=== PATIENT | female | born 1930 | race Caucasian/White ===

== ENCOUNTER 2017-03-17 18:37 | Inpatient (IN) | payer MEDICARE, BC, OTHER ==
[2017-03-17] MEDS: NS 500 ML IV (19:45)
[2017-03-17 20:47] LABS: VENOUS BASE EXCESS 0.9 (-2.0-2.0); VENOUS HCO3 25.1 MEQ/L (23.0-27.0); VENOUS O2 SATURATION 43.5 % (60.0-80.0); VENOUS PARTIAL PRESSURE CO2 38.4 mmHg (38.0-50.0); VENOUS PH 7.433 UNITS (7.330-7.430); VENOUS STANDARD HCO3 24.2 MEQ/L; VENOUS TOTAL CO2 26.3 MEQ/L (24.0-28.0)
[2017-03-17 21:14] LABS: ALBUMIN 3.7 GM/DL (3.2-5.2); ALBUMIN/GLOBULIN RATIO 1.12 (1.00-1.93); ALKALINE PHOSPHATASE 73 U/L (45-117); ALT/SGPT 12 U/L (12-78); ANION GAP 8 MEQ/L (8-16); AST/SGOT 10 U/L (7-37); BILIRUBIN,DIRECT 0.2 MG/DL (0.0-0.2); BILIRUBIN,TOTAL 0.6 MG/DL (0.2-1.0); BLOOD UREA NITROGEN 23 MG/DL (7-18); CALCIUM LEVEL 9.1 MG/DL (8.8-10.2); CARBON DIOXIDE LEVEL 26 MEQ/L (21-32); CHLORIDE LEVEL 108 MEQ/L (98-107); CPK CREATINE PHOSPHOKINASE 75 U/L (26-192); CREATININE FOR GFR 1.08 MG/DL (0.55-1.02); GLOMERULAR FILTRATION RATE 51.3 (>32); GLUCOSE, FASTING 80 MG/DL (70-100); SODIUM LEVEL 142 MEQ/L (136-145); TROPONIN I < 0.02 NG/ML (< 0.10)
[2017-03-17 21:20] LABS: CK-MB VALUE MASS 1.1 NG/ML (0.0-3.6); MB/CK RELATIVE INDEX 1.46 (< OR =4)
[2017-03-17 21:27] LABS: BASO # 0.1 10^3/uL (0.0-0.2); BASO % 0.8 % (0.0-1.0); EOS # 0.2 10^3/uL (0.0-0.50); HEMATOCRIT 30.4 % (36.0-47.0); HEMOGLOBIN 11.3 g/dl (12.0-16.0); IMMATURE GRANULOCYTE % 0.4 % (0-0); LYMPH # 1.9 10^3/uL (1.5-4.5); LYMPH % 24.7 % (24.0-44.0); MEAN CORPUSCULAR HEMOGLOBIN 36.6 pg (27.0-33.0); MEAN CORPUSCULAR VOLUME 98.4 fl (80.0-96.0); MONO # 0.7 10^3/uL (0.0-0.8); MONO % 9.6 % (0.0-5.0); NEUTROPHILS # 4.7 10^3/uL (1.8-7.7); NEUTROPHILS % 61.5 % (36.0-66.0); PLATELET COUNT, AUTOMATED 232 10^3/uL (150-450); RED BLOOD COUNT 3.09 10^6/uL (4.00-5.40); RED CELL DISTRIBUTION WIDTH 18.4 % (11.5-14.5); WHITE BLOOD COUNT 7.6 10^3/uL (4.0-10.0)
[2017-03-17 21:32] LABS: MEAN CORPUSCULAR HGB CONC 37.2 g/dl (32.0-36.5)
[2017-03-17 21:42] LABS: LACTIC ACID SEPSIS PROTOCOL 0.9 MMOL/L (0.4-2.0)
[2017-03-17 22:27] LABS: KETONE, URINE AUTO RFX 1+ mg/dL (NEGATIVE); LEUKOCYTE ESTERASE UR AUTO RFX NEGATIVE (NEGATIVE); MUCUS, URINE RFX MODERATE (NEGATIVE); NITRITE, URINE AUTO RFX NEGATIVE (NEGATIVE); RBC, URINE AUTO RFX 7 /HPF (0-3); SPECIFIC GRAVITY UR AUTO RFX 1.024 (1.002-1.035); SQUAM EPITHELIAL CELL UR AURFX 0 /HPF (0-6); WBC, URINE AUTO RFX 1 /HPF (0-3)
[2017-03-17] MEDS ORDERED: ONDANSETRON 4MG/2ML VIAL (J2405) IV (23:45)
[2017-03-18] MEDS: NS 1,000 ML IV ×3 (00:50→17:00)
[2017-03-18] MEDS: **hydrALAZINE** 10 MG TAB PO ×5 (01:02→23:31)
[2017-03-18] MEDS: amLODIPine 5 MG TAB PO ×3 (01:03→20:24)
[2017-03-18 01:30] LABS: AMMONIA < 10 uMOL/L (<32)
[2017-03-18] MEDS ORDERED: HALOBETASOL PROPION 0.05% OINT 15 GM EXT (02:00)
[2017-03-18] MEDS ORDERED: ALBUTEROL 90 MCG/ACT 8GM HFA INHALER INH (02:00)
[2017-03-18 07:43] LABS: BASO % 0.6 % (0.0-1.0); EOS # 0.3 10^3/uL (0.0-0.50); EOS % 4.3 % (0.0-3.0); HEMOGLOBIN 10.1 g/dl (12.0-16.0); IMMATURE GRANULOCYTE % 0.5 % (0-0); LYMPH # 1.3 10^3/uL (1.5-4.5); LYMPH % 20.4 % (24.0-44.0); MEAN CORPUSCULAR HEMOGLOBIN 33.3 pg (27.0-33.0); MEAN CORPUSCULAR VOLUME 95.7 fl (80.0-96.0); MONO # 0.6 10^3/uL (0.0-0.8); MONO % 9.2 % (0.0-5.0); NEUTROPHILS # 4.2 10^3/uL (1.8-7.7); PLATELET COUNT, AUTOMATED 207 10^3/uL (150-450); RED BLOOD COUNT 3.03 10^6/uL (4.00-5.40); RED CELL DISTRIBUTION WIDTH 16.5 % (11.5-14.5); WHITE BLOOD COUNT 6.5 10^3/uL (4.0-10.0)
[2017-03-18 07:45] LABS: MEAN CORPUSCULAR HGB CONC 34.8 g/dl (32.0-36.5)
[2017-03-18 07:46] LABS: ANION GAP 8 MEQ/L (8-16); BLOOD UREA NITROGEN 19 MG/DL (7-18); CALCIUM LEVEL 8.1 MG/DL (8.8-10.2); CARBON DIOXIDE LEVEL 24 MEQ/L (21-32); CHLORIDE LEVEL 111 MEQ/L (98-107); CREATININE FOR GFR 0.79 MG/DL (0.55-1.02); GLOMERULAR FILTRATION RATE > 60.0 (>32); GLUCOSE, FASTING 76 MG/DL (70-100); POTASSIUM SERUM 3.6 MEQ/L (3.5-5.1); SODIUM LEVEL 143 MEQ/L (136-145)
[2017-03-18] MEDS: VITAMIN D 1,000 INTERNATIONAL UNITS TABLET PO (10:24)
[2017-03-18] MEDS: SERTRALINE HCL 25 MG TABLET PO (10:24)
[2017-03-18] MEDS: ENOXAPARIN 40 MG/0.4 ML SYRINGE (J1650) SC (10:25)
[2017-03-18] MEDS: OMEPRAZOLE 20 MG CAP PO (10:25)
[2017-03-18] MEDS: CLOPIDOGREL 75 MG TAB PO (10:26)
[2017-03-18] MEDS: ASCORBIC ACID 500 MG TAB PO (10:26)
[2017-03-18] MEDS: oxyBUTYnin *DITROPAN XL* 5 MG TABCR PO (10:27)
[2017-03-18] MEDS: PRAVASTATIN 20 MG TAB PO ×2 (20:26→20:27)
[2017-03-19] MEDS: **hydrALAZINE** 10 MG TAB PO ×4 (05:58→23:43)
[2017-03-19 06:43] LABS: BASO % 0.5 % (0.0-1.0); EOS # 0.3 10^3/uL (0.0-0.50); EOS % 4.6 % (0.0-3.0); HEMATOCRIT 29.2 % (36.0-47.0); HEMOGLOBIN 9.7 g/dl (12.0-16.0); IMMATURE GRANULOCYTE % 0.3 % (0-0); LYMPH # 1.4 10^3/uL (1.5-4.5); LYMPH % 22.3 % (24.0-44.0); MEAN CORPUSCULAR HEMOGLOBIN 31.9 pg (27.0-33.0); MEAN CORPUSCULAR HGB CONC 33.2 g/dl (32.0-36.5); MEAN CORPUSCULAR VOLUME 96.1 fl (80.0-96.0); MONO # 0.7 10^3/uL (0.0-0.8); MONO % 10.8 % (0.0-5.0); NEUTROPHILS # 3.8 10^3/uL (1.8-7.7); NEUTROPHILS % 61.5 % (36.0-66.0); PLATELET COUNT, AUTOMATED 207 10^3/uL (150-450); RED BLOOD COUNT 3.04 10^6/uL (4.00-5.40); RED CELL DISTRIBUTION WIDTH 16.1 % (11.5-14.5); WHITE BLOOD COUNT 6.1 10^3/uL (4.0-10.0)
[2017-03-19 06:49] LABS: ANION GAP 5 MEQ/L (8-16); BLOOD UREA NITROGEN 15 MG/DL (7-18); CALCIUM LEVEL 8.2 MG/DL (8.8-10.2); CARBON DIOXIDE LEVEL 26 MEQ/L (21-32); CHLORIDE LEVEL 114 MEQ/L (98-107); CREATININE FOR GFR 0.82 MG/DL (0.55-1.02); GLOMERULAR FILTRATION RATE > 60.0 (>32); GLUCOSE, FASTING 101 MG/DL (70-100); SODIUM LEVEL 145 MEQ/L (136-145)
[2017-03-19] MEDS: SERTRALINE HCL 25 MG TABLET PO (09:33)
[2017-03-19] MEDS: ASCORBIC ACID 500 MG TAB PO (09:33)
[2017-03-19] MEDS: amLODIPine 5 MG TAB PO ×2 (09:33→20:51)
[2017-03-19] MEDS: oxyBUTYnin *DITROPAN XL* 5 MG TABCR PO (09:33)
[2017-03-19] MEDS: OMEPRAZOLE 20 MG CAP PO (09:33)
[2017-03-19] MEDS: CLOPIDOGREL 75 MG TAB PO (09:33)
[2017-03-19] MEDS: VITAMIN D 1,000 INTERNATIONAL UNITS TABLET PO (09:33)
[2017-03-19] MEDS: ENOXAPARIN 40 MG/0.4 ML SYRINGE (J1650) SC (09:34)
[2017-03-19] MEDS: PRAVASTATIN 20 MG TAB PO (20:51)
[2017-03-19] MEDS: ACETAMINOPHEN TAB 650MG DOSE (2X325MG) PO (23:44)
[2017-03-20] MEDS: **hydrALAZINE** 10 MG TAB PO ×4 (06:16→23:50)
[2017-03-20 06:50] LABS: ANION GAP 7 MEQ/L (8-16); BLOOD UREA NITROGEN 17 MG/DL (7-18); CALCIUM LEVEL 9.1 MG/DL (8.8-10.2); CARBON DIOXIDE LEVEL 28 MEQ/L (21-32); CHLORIDE LEVEL 109 MEQ/L (98-107); CREATININE FOR GFR 0.81 MG/DL (0.55-1.02); GLOMERULAR FILTRATION RATE > 60.0 (>32); GLUCOSE, FASTING 95 MG/DL (70-100); POTASSIUM SERUM 3.9 MEQ/L (3.5-5.1); SODIUM LEVEL 144 MEQ/L (136-145)
[2017-03-20 06:53] LABS: BASO # 0.1 10^3/uL (0.0-0.2); BASO % 0.9 % (0.0-1.0); EOS # 0.4 10^3/uL (0.0-0.50); EOS % 6.6 % (0.0-3.0); HEMATOCRIT 31.1 % (36.0-47.0); HEMOGLOBIN 10.8 g/dl (12.0-16.0); IMMATURE GRANULOCYTE % 0.3 % (0-0); LYMPH # 1.5 10^3/uL (1.5-4.5); LYMPH % 26.7 % (24.0-44.0); MEAN CORPUSCULAR HEMOGLOBIN 33.3 pg (27.0-33.0); MONO # 0.6 10^3/uL (0.0-0.8); MONO % 9.8 % (0.0-5.0); NEUTROPHILS # 3.2 10^3/uL (1.8-7.7); NEUTROPHILS % 55.7 % (36.0-66.0); PLATELET COUNT, AUTOMATED 237 10^3/uL (150-450); RED BLOOD COUNT 3.24 10^6/uL (4.00-5.40); RED CELL DISTRIBUTION WIDTH 17.1 % (11.5-14.5); WHITE BLOOD COUNT 5.7 10^3/uL (4.0-10.0)
[2017-03-20 07:04] LABS: MEAN CORPUSCULAR HGB CONC 34.7 g/dl (32.0-36.5)
[2017-03-20] MEDS: VITAMIN D 1,000 INTERNATIONAL UNITS TABLET PO (08:50)
[2017-03-20] MEDS: OMEPRAZOLE 20 MG CAP PO (08:51)
[2017-03-20] MEDS: amLODIPine 5 MG TAB PO ×2 (08:53→20:32)
[2017-03-20] MEDS: CLOPIDOGREL 75 MG TAB PO (08:56)
[2017-03-20] MEDS: ASCORBIC ACID 500 MG TAB PO (08:56)
[2017-03-20] MEDS: oxyBUTYnin *DITROPAN XL* 5 MG TABCR PO (08:56)
[2017-03-20] MEDS: SERTRALINE HCL 25 MG TABLET PO (08:56)
[2017-03-20] MEDS: ENOXAPARIN 40 MG/0.4 ML SYRINGE (J1650) SC (08:57)
[2017-03-20] MEDS: ACETAMINOPHEN TAB 650MG DOSE (2X325MG) PO ×2 (08:59→17:55)
[2017-03-20] MEDS: PRAVASTATIN 20 MG TAB PO (20:33)
[2017-03-21] MEDS: **hydrALAZINE** 10 MG TAB PO ×3 (05:56→18:00)
[2017-03-21] MEDS: VITAMIN D 1,000 INTERNATIONAL UNITS TABLET PO (08:22)
[2017-03-21] MEDS: oxyBUTYnin *DITROPAN XL* 5 MG TABCR PO (08:22)
[2017-03-21] MEDS: CLOPIDOGREL 75 MG TAB PO (08:22)
[2017-03-21] MEDS: amLODIPine 5 MG TAB PO ×2 (08:22→21:06)
[2017-03-21] MEDS: ASCORBIC ACID 500 MG TAB PO (08:23)
[2017-03-21] MEDS: ENOXAPARIN 40 MG/0.4 ML SYRINGE (J1650) SC (08:23)
[2017-03-21] MEDS: OMEPRAZOLE 20 MG CAP PO (08:23)
[2017-03-21] MEDS: SERTRALINE HCL 25 MG TABLET PO (08:23)
[2017-03-21 08:30] LABS: ANION GAP 10 MEQ/L (8-16); BLOOD UREA NITROGEN 14 MG/DL (7-18); CALCIUM LEVEL 8.7 MG/DL (8.8-10.2); CARBON DIOXIDE LEVEL 28 MEQ/L (21-32); CHLORIDE LEVEL 107 MEQ/L (98-107); CREATININE FOR GFR 0.84 MG/DL (0.55-1.30); GLOMERULAR FILTRATION RATE > 60.0 (>32); GLUCOSE, FASTING 101 MG/DL (70-100); POTASSIUM SERUM 3.7 MEQ/L (3.5-5.1); SODIUM LEVEL 145 MEQ/L (136-145)
[2017-03-21 09:03] LABS: BASO # 0.1 10^3/uL (0.0-0.2); BASO % 0.9 % (0.0-1.0); EOS # 0.3 10^3/uL (0.0-0.50); EOS % 5.6 % (0.0-3.0); HEMATOCRIT 35.7 % (36.0-47.0); IMMATURE GRANULOCYTE % 0.4 % (0-0); LYMPH # 1.3 10^3/uL (1.5-4.5); LYMPH % 22.4 % (24.0-44.0); MEAN CORPUSCULAR HEMOGLOBIN 35.1 pg (27.0-33.0); MONO # 0.5 10^3/uL (0.0-0.8); MONO % 8.4 % (0.0-5.0); NEUTROPHILS # 3.5 10^3/uL (1.8-7.7); NEUTROPHILS % 62.3 % (36.0-66.0); PLATELET COUNT, AUTOMATED 250 10^3/uL (150-450); RED BLOOD COUNT 3.68 10^6/uL (4.00-5.40); WHITE BLOOD COUNT 5.6 10^3/uL (4.0-10.0)
[2017-03-21 09:05] LABS: HEMOGLOBIN 12.9 g/dl (12.0-16.0)
[2017-03-21 09:06] LABS: MEAN CORPUSCULAR HGB CONC 36.1 g/dl (32.0-36.5)
[2017-03-21] MEDS: PRAVASTATIN 20 MG TAB PO (21:05)
[2017-03-22] MEDS: **hydrALAZINE** 10 MG TAB PO ×4 (06:00→18:00)
[2017-03-22 07:01] LABS: ANION GAP 5 MEQ/L (8-16); BLOOD UREA NITROGEN 18 MG/DL (7-18); CALCIUM LEVEL 8.4 MG/DL (8.8-10.2); CARBON DIOXIDE LEVEL 30 MEQ/L (21-32); CHLORIDE LEVEL 110 MEQ/L (98-107); CREATININE FOR GFR 0.76 MG/DL (0.55-1.30); GLOMERULAR FILTRATION RATE > 60.0 (>32); GLUCOSE, FASTING 99 MG/DL (70-100); POTASSIUM SERUM 3.8 MEQ/L (3.5-5.1); SODIUM LEVEL 145 MEQ/L (136-145)
[2017-03-22 07:36] LABS: BASO % 0.6 % (0.0-1.0); EOS # 0.3 10^3/uL (0.0-0.50); EOS % 5.3 % (0.0-3.0); HEMATOCRIT 30.6 % (36.0-47.0); IMMATURE GRANULOCYTE % 0.2 % (0-0); LYMPH # 1.4 10^3/uL (1.5-4.5); LYMPH % 20.9 % (24.0-44.0); MEAN CORPUSCULAR HEMOGLOBIN 33.4 pg (27.0-33.0); MEAN CORPUSCULAR HGB CONC 34.6 g/dl (32.0-36.5); MEAN CORPUSCULAR VOLUME 96.5 fl (80.0-96.0); MONO # 0.6 10^3/uL (0.0-0.8); MONO % 9.9 % (0.0-5.0); NEUTROPHILS # 4.1 10^3/uL (1.8-7.7); NEUTROPHILS % 63.1 % (36.0-66.0); PLATELET COUNT, AUTOMATED 226 10^3/uL (150-450); RED BLOOD COUNT 3.17 10^6/uL (4.00-5.40); RED CELL DISTRIBUTION WIDTH 16.7 % (11.5-14.5); WHITE BLOOD COUNT 6.5 10^3/uL (4.0-10.0)
[2017-03-22 07:39] LABS: HEMOGLOBIN 10.6 g/dl (12.0-16.0)
[2017-03-22] MEDS: VITAMIN D 1,000 INTERNATIONAL UNITS TABLET PO (08:31)
[2017-03-22] MEDS: oxyBUTYnin *DITROPAN XL* 5 MG TABCR PO (08:31)
[2017-03-22] MEDS: ENOXAPARIN 40 MG/0.4 ML SYRINGE (J1650) SC (08:31)
[2017-03-22] MEDS: ASCORBIC ACID 500 MG TAB PO (08:32)
[2017-03-22] MEDS: amLODIPine 5 MG TAB PO ×2 (08:32→21:34)
[2017-03-22] MEDS: SERTRALINE HCL 25 MG TABLET PO (08:32)
[2017-03-22] MEDS: OMEPRAZOLE 20 MG CAP PO (08:32)
[2017-03-22] MEDS: CLOPIDOGREL 75 MG TAB PO (08:32)
[2017-03-22] MEDS: PRAVASTATIN 20 MG TAB PO (21:34)
[2017-03-23] MEDS: **hydrALAZINE** 10 MG TAB PO ×3 (06:00→12:20)
[2017-03-23 07:08] LABS: HEMOGLOBIN 10.9 g/dl (12.0-16.0); PLATELET COUNT, AUTOMATED 228 10^3/uL (150-450); RED BLOOD COUNT 3.06 10^6/uL (4.00-5.40); RED CELL DISTRIBUTION WIDTH 18.5 % (11.5-14.5); WHITE BLOOD COUNT 7.7 10^3/uL (4.0-10.0)
[2017-03-23 07:09] LABS: MEAN CORPUSCULAR HEMOGLOBIN 35.6 pg (27.0-33.0); MEAN CORPUSCULAR HGB CONC 36.3 g/dl (32.0-36.5)
[2017-03-23 07:19] LABS: ANION GAP 8 MEQ/L (8-16); BLOOD UREA NITROGEN 15 MG/DL (7-18); CALCIUM LEVEL 8.6 MG/DL (8.8-10.2); CARBON DIOXIDE LEVEL 26 MEQ/L (21-32); CHLORIDE LEVEL 108 MEQ/L (98-107); CREATININE FOR GFR 0.74 MG/DL (0.55-1.30); GLOMERULAR FILTRATION RATE > 60.0 (>32); GLUCOSE, FASTING 100 MG/DL (70-100); MAGNESIUM LEVEL 2.1 MG/DL (1.8-2.4); POTASSIUM SERUM 3.5 MEQ/L (3.5-5.1); SODIUM LEVEL 142 MEQ/L (136-145)
[2017-03-23] MEDS: ASCORBIC ACID 500 MG TAB PO (08:59)
[2017-03-23] MEDS: VITAMIN D 1,000 INTERNATIONAL UNITS TABLET PO (08:59)
[2017-03-23] MEDS: SERTRALINE HCL 25 MG TABLET PO (08:59)
[2017-03-23] MEDS: CLOPIDOGREL 75 MG TAB PO (08:59)
[2017-03-23] MEDS: amLODIPine 5 MG TAB PO (08:59)
[2017-03-23] MEDS: OMEPRAZOLE 20 MG CAP PO (08:59)
[2017-03-23] MEDS: oxyBUTYnin *DITROPAN XL* 5 MG TABCR PO (08:59)
[2017-03-23] MEDS: ENOXAPARIN 40 MG/0.4 ML SYRINGE (J1650) SC (10:43)
== END 2017-03-23 14:30 | DRG 884 ==
LOC: M MS4PR 03-18 01:40 → M ED 18:37 → M ED INP 23:33
DX: F03.90 Unspecified dementia, unspecified severity, without behavioral disturbance, psychotic disturbance, mood disturbance, and anxiety (principal); R41.82 Altered mental status, unspecified; R29.6 Repeated falls; I16.0 Hypertensive urgency; N32.81 Overactive bladder; J45.909 Unspecified asthma, uncomplicated; E78.5 Hyperlipidemia, unspecified; K21.9 Gastro-esophageal reflux disease without esophagitis; Z79.02 Long term (current) use of antithrombotics/antiplatelets; Z88.0 Allergy status to penicillin; Z79.899 Other long term (current) drug therapy

== ENCOUNTER → 2017-04-05 | Outpatient (REF) ==
[2017-04-05 11:50] LABS: HEMATOCRIT 34.8 % (36.0-47.0); HEMOGLOBIN 11.7 g/dl (12.0-16.0); MEAN CORPUSCULAR HEMOGLOBIN 32.2 pg (27.0-33.0); MEAN CORPUSCULAR HGB CONC 33.6 g/dl (32.0-36.5); MEAN CORPUSCULAR VOLUME 95.9 fl (80.0-96.0); PLATELET COUNT, AUTOMATED 370 10^3/uL (150-450); RED BLOOD COUNT 3.63 10^6/uL (4.00-5.40); WHITE BLOOD COUNT 9.5 10^3/uL (4.0-10.0)
[2017-04-05 11:56] LABS: ANION GAP 8 MEQ/L (8-16); BLOOD UREA NITROGEN 17 MG/DL (7-18); CALCIUM LEVEL 9.2 MG/DL (8.8-10.2); CARBON DIOXIDE LEVEL 29 MEQ/L (21-32); CHLORIDE LEVEL 105 MEQ/L (98-107); CREATININE FOR GFR 0.86 MG/DL (0.55-1.30); GLOMERULAR FILTRATION RATE > 60.0 (>32); GLUCOSE, FASTING 99 MG/DL (70-100); POTASSIUM SERUM 4.3 MEQ/L (3.5-5.1); SODIUM LEVEL 142 MEQ/L (136-145)
== END ==
DX: I10 Essential (primary) hypertension (principal)

== ENCOUNTER 2017-06-16 11:15 | Emergency (ER) | payer MEDICARE, BC ==
[2017-06-16 11:47] LABS: AMORPHOUS SEDIMENT RFX SMALL (NEGATIVE); KETONE, URINE AUTO RFX 1+ mg/dL (NEGATIVE); MUCUS, URINE RFX SMALL (NEGATIVE); RBC, URINE AUTO RFX TNTC /HPF (0-3); RENAL EPITHELIAL CELLS RFX 1 /HPF; SPECIFIC GRAVITY UR AUTO RFX 1.018 (1.002-1.035); SQUAM EPITHELIAL CELL UR AURFX 1 /HPF (0-6); TRANSITIONAL EPITHELIAL AU RFX 2 /HPF
[2017-06-16 12:14] LABS: LEUKOCYTE ESTERASE UR AUTO RFX 3+ (NEGATIVE); NITRITE, URINE AUTO RFX POSITIVE (NEGATIVE); WBC, URINE AUTO RFX TNTC /HPF (0-3)
[2017-06-16] MEDS: NS 1,000 ML IV (12:15)
[2017-06-16] MEDS: CIPROFLOXACIN 400 MG in APPROPRIATE DILUENT 1 EA IV (12:30)
[2017-06-16 13:08] LABS: ALBUMIN 3.3 GM/DL (3.2-5.2); ALBUMIN/GLOBULIN RATIO 0.89 (1.00-1.93); ALKALINE PHOSPHATASE 85 U/L (45-117); ALT/SGPT 13 U/L (12-78); ANION GAP 7 MEQ/L (8-16); AST/SGOT 11 U/L (7-37); BILIRUBIN,DIRECT 0.2 MG/DL (0.0-0.2); BILIRUBIN,TOTAL 0.6 MG/DL (0.2-1.0); BLOOD UREA NITROGEN 14 MG/DL (7-18); CALCIUM LEVEL 8.7 MG/DL (8.8-10.2); CARBON DIOXIDE LEVEL 28 MEQ/L (21-32); CHLORIDE LEVEL 106 MEQ/L (98-107); CPK CREATINE PHOSPHOKINASE 64 U/L (26-192); CREATININE FOR GFR 1.03 MG/DL (0.55-1.30); GLOMERULAR FILTRATION RATE 54.2 (>32); GLUCOSE, FASTING 85 MG/DL (70-100); POTASSIUM SERUM 3.8 MEQ/L (3.5-5.1); SODIUM LEVEL 141 MEQ/L (136-145); TROPONIN I < 0.02 NG/ML (< 0.10)
[2017-06-16 13:08] LABS: LACTIC ACID SEPSIS PROTOCOL 0.8 MMOL/L (0.4-2.0)
[2017-06-16 13:12] LABS: BASO % 0.3 % (0.0-1.0); EOS # 0.1 10^3/uL (0.0-0.50); EOS % 0.7 % (0.0-3.0); HEMATOCRIT 32.3 % (36.0-47.0); IMMATURE GRANULOCYTE % 0.4 % (0-3.0); LYMPH # 1.3 10^3/uL (1.5-4.5); LYMPH % 10.9 % (24.0-44.0); MEAN CORPUSCULAR HEMOGLOBIN 31.6 pg (27.0-33.0); MEAN CORPUSCULAR HGB CONC 34.1 g/dl (32.0-36.5); MEAN CORPUSCULAR VOLUME 92.8 fl (80.0-96.0); MONO % 8.2 % (0.0-5.0); NEUTROPHILS # 9.7 10^3/uL (1.8-7.7); NEUTROPHILS % 79.5 % (36.0-66.0); PLATELET COUNT, AUTOMATED 231 10^3/uL (150-450); RED BLOOD COUNT 3.48 10^6/uL (4.00-5.40); RED CELL DISTRIBUTION WIDTH 17.3 % (11.5-14.5)
[2017-06-16 13:14] LABS: CK-MB VALUE MASS 1.4 NG/ML (<3.6); MB/CK RELATIVE INDEX 2.18 (< OR =4)
[2017-06-16 14:12] LABS: WHITE BLOOD COUNT 12.2 10^3/uL (4.0-10.0)
[2017-06-16] MEDS: ONDANSETRON 4MG/2ML VIAL (J2405) IV (14:57)
== END 2017-06-16 15:42 | disposition home or self-care (01) ==
LOC: M ED 11:15
DX: N39.0 Urinary tract infection, site not specified (principal); R53.1 Weakness; I10 Essential (primary) hypertension; F33.9 Major depressive disorder, recurrent, unspecified; E78.9 Disorder of lipoprotein metabolism, unspecified; K21.9 Gastro-esophageal reflux disease without esophagitis; F03.90 Unspecified dementia, unspecified severity, without behavioral disturbance, psychotic disturbance, mood disturbance, and anxiety; K44.9 Diaphragmatic hernia without obstruction or gangrene; Z79.899 Other long term (current) drug therapy; Z79.51 Long term (current) use of inhaled steroids; Z88.0 Allergy status to penicillin
CPT/HCPCS: J2405

== ENCOUNTER 2017-07-12 15:33 | Emergency (ER) | payer MEDICARE | END 2017-07-12 19:31 | disposition home or self-care (01) | LOC: M ED 15:33 | DX: S00.93XA Contusion of unspecified part of head, initial encounter (principal); S06.0X1A Concussion with loss of consciousness of 30 minutes or less, initial encounter; W22.8XXA Striking against or struck by other objects, initial encounter; Y92.098 Other place in other non-institutional residence as the place of occurrence of the external cause; I10 Essential (primary) hypertension; J45.909 Unspecified asthma, uncomplicated; K21.9 Gastro-esophageal reflux disease without esophagitis; Z79.899 Other long term (current) drug therapy; Z79.02 Long term (current) use of antithrombotics/antiplatelets; Z88.0 Allergy status to penicillin | CPT/HCPCS: 70450 ==

== ENCOUNTER 2018-05-22 13:13 | Emergency (ER) | payer MEDICARE ==
[~2018-05-22 13:13] MED LIST: ADV250INH INH; AMLO5TAB6 PO; CIPR-249 PO; CLOP75TA2 PO; HALO15OI; HALO15OI EXT; MULT1TAB9 PO; OMEP20CA3 PO; OXYB10TA PO; PRAV20TA2 PO; SERT25TA85 PO; SERT25TA88; VENTAER INH; VITA100066 PO; VITA500T PO
--- NOTE | 2018-05-22 14:07 | REP ---
CT cervical spine without contrast HISTORY: Trauma COMPARISON: 07/12/2017 There is no acute fracture. A disc bulge is present at the C3-4 level. Disc bulges with associated osteophyte formation are present at the C4-5 through C6-7 levels. There is minimal narrowing of the spinal canal. Uncinate process and/or facet hypertrophy are present at the C2-3 through C6-7 levels. These findings produce minimal to moderate narrowing of the neural foramina. The C4-5 through C6-7 intervertebral discs are decreased in height consistent with disc degeneration. There 2 mm of retrolisthesis of C5-6. Scarring is present in the lung apices. Hypodensities are present in the thyroid gland. These most likely represent cysts. IMPRESSION: 1. There is no acute fracture or subluxation. 2. There is cervical spondylosis at the C2-3 through C6-7 levels. 3. There are hypodensities in the thyroid gland. These most likely represent cysts. Ultrasound may be helpful for further evaluation. Electronically Signed by Gabriel Crocker MD 05/22/2018 01:58 P
--- NOTE | 2018-05-22 14:09 | REP ---
CT Head without contrast HISTORY: Fall COMPARISON: 07/12/2017 Areas of decreased attenuation are present in the periventricular and subcortical white matter. This represents small-vessel ischemic disease. There is no intraparenchymal hemorrhage, acute infarct, mass or midline shift. The ventricular system and cortical sulci are dilated consistent with mild volume loss. There is no extra cerebral collection. There is no fracture. The visualized sinuses are clear. Soft tissue swelling is present over the left parietal bone. IMPRESSION: 1. Small vessel ischemic disease. 2. Mild volume loss. Electronically Signed by Gabriel Crocker MD 05/22/2018 02:01 P
[2018-05-22] MEDS ORDERED: ACETAMINOPHEN TAB 650MG DOSE (2X325MG) PO ONE (14:45)
[2018-05-22 14:52] LABS: BASO # 0.1 10^3/uL (0.0-0.2); BASO % 0.9 % (0.0-1.0); EOS # 0.6 10^3/uL (0.0-0.50); EOS % 7.2 % (0.0-3.0); HEMATOCRIT 36.5 % (36.0-47.0); LYMPH # 1.4 10^3/uL (1.5-4.5); LYMPH % 18.8 % (24.0-44.0); MEAN CORPUSCULAR HEMOGLOBIN 31.3 pg (27.0-33.0); MEAN CORPUSCULAR HGB CONC 32.9 g/dl (32.0-36.5); MEAN CORPUSCULAR VOLUME 95.3 fl (80.0-96.0); MONO # 0.6 10^3/uL (0.0-0.8); PLATELET COUNT, AUTOMATED 249 10^3/uL (150-450); RED BLOOD COUNT 3.83 10^6/uL (4.00-5.40); WHITE BLOOD COUNT 7.6 10^3/uL (4.0-10.0)
[2018-05-22 14:56] LABS: ALBUMIN 3.8 GM/DL (3.2-5.2); ALT/SGPT 101 U/L (12-78); BILIRUBIN,TOTAL 0.7 MG/DL (0.2-1.0); BLOOD UREA NITROGEN 17 MG/DL (7-18); CARBON DIOXIDE LEVEL 28 MEQ/L (21-32); CHLORIDE LEVEL 107 MEQ/L (98-107); CREATININE FOR GFR 0.83 MG/DL (0.55-1.30); GLOMERULAR FILTRATION RATE > 60.0 (>32); GLUCOSE, FASTING 88 MG/DL (70-100); POTASSIUM SERUM 4.9 MEQ/L (3.5-5.1); SODIUM LEVEL 140 MEQ/L (136-145); TOTAL PROTEIN 7.2 GM/DL (6.4-8.2)
--- NOTE | 2018-05-22 15:18 | REP ---
Clinical: Trauma/fall. Technique: AP, lateral, bilateral oblique views of the left knee. Findings: Age-related osteopenia and degenerative changes are appreciated. No obvious acute fracture or dislocation. No effusion. Impression: Osteopenia and degenerative changes without obvious acute fracture or dislocation. Electronically Signed by Aguilar Vick MD 05/22/2018 03:10 P
--- NOTE | 2018-05-22 15:19 | REP ---
Clinical: Trauma/fall. Technique: AP view of the pelvis with neutral and frog lateral views of the right and left hip. 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 No acute pelvic or hip fracture identified. Impression: Symmetric degenerative changes. No acute fracture or dislocation appreciated. Electronically Signed by Aguilar Vick MD 05/22/2018 03:11 P
[2018-05-22 16:31] LABS: INR 0.98; PROTHROMBIN TIME 13.1 SECONDS (12.1-14.4)
[2018-05-22 16:32] LABS: PARTIAL THROMBOPLASTIN TIME 28.7 SECONDS (25.4-37.6)
[2018-05-22 18:12] VITALS: BP 162/81
--- NOTE | 2018-05-23 11:50 | ED PDOC ---
Post-Departure Follow-Up lawanda dias faxed formal report of ange hughes for fu Clyde Valera MD May 23, 2018 11:50
== END 2018-05-22 18:13 | disposition home or self-care (01) ==
LOC: M ED 13:13
DX: S09.90XA Unspecified injury of head, initial encounter (principal); W05.0XXA Fall from non-moving wheelchair, initial encounter; Y92.129 Unspecified place in nursing home as the place of occurrence of the external cause; Y93.9 Activity, unspecified; Y99.9 Unspecified external cause status; I10 Essential (primary) hypertension; E78.5 Hyperlipidemia, unspecified; J44.9 Chronic obstructive pulmonary disease, unspecified; M16.31 Unilateral osteoarthritis resulting from hip dysplasia, right hip; M16.32 Unilateral osteoarthritis resulting from hip dysplasia, left hip; M25.559 Pain in unspecified hip; M25.759 Osteophyte, unspecified hip; M85.88 Other specified disorders of bone density and structure, other site; M47.812 Spondylosis without myelopathy or radiculopathy, cervical region; R93.89 Abnormal findings on diagnostic imaging of other specified body structures; Z79.899 Other long term (current) drug therapy; Z88.0 Allergy status to penicillin

== ENCOUNTER 2020-01-20 17:17 | Inpatient (IN) | payer MEDICARE ==
[~2020-01-20] VITALS: Ht 160 cm; Wt 56.1 kg
[~2020-01-20 17:17] MED LIST changes: +AMLO1TAB24 PO; -AMLO5TAB6 PO; +OMEP1CAP73 PO; -OMEP20CA3 PO; -OXYB10TA PO; +OXYB10TA23 PO; +SERT25TA21; -SERT25TA88; +VITA-243 PO; -VITA500T PO
[2020-01-20 19:39] LABS: ALBUMIN 2.3 GM/DL (3.2-5.2); ALT/SGPT 78 U/L (12-78); BILIRUBIN,DIRECT < 0.1 MG/DL (0.0-0.2); BILIRUBIN,TOTAL 0.2 MG/DL (0.2-1.0); BLOOD UREA NITROGEN 15 MG/DL (7-18); CALCIUM LEVEL 9.3 MG/DL (8.8-10.2); CARBON DIOXIDE LEVEL 27 MEQ/L (21-32); CHLORIDE LEVEL 107 MEQ/L (98-107); CK-MB VALUE MASS 1.4 NG/ML (<3.6); CPK CREATINE PHOSPHOKINASE 26 U/L (26-192); CREATININE FOR GFR 0.81 MG/DL (0.55-1.30); GLOMERULAR FILTRATION RATE > 60.0 (>32); GLUCOSE, FASTING 97 MG/DL (70-100); MB/CK RELATIVE INDEX 5.38 (< OR =4); POTASSIUM SERUM 3.2 MEQ/L (3.5-5.1); SODIUM LEVEL 141 MEQ/L (136-145); THYROID STIMULATING HORMONE 0.688 uIU/ML (0.358-3.740); TOTAL PROTEIN 5.9 GM/DL (6.4-8.2); TROPONIN I < 0.02 NG/ML (< 0.10)
[2020-01-20] MEDS ORDERED: NS 1,000 ML IV ONE ×2 (19:45→22:00)
[2020-01-20 19:56] LABS: HEMATOCRIT 31.5 % (36.0-47.0); HEMOGLOBIN 10.8 g/dl (12.0-15.5); MEAN CORPUSCULAR HEMOGLOBIN 32.9 pg (27.0-33.0); MEAN CORPUSCULAR HGB CONC 34.3 g/dl (32.0-36.5); PLATELET COUNT, AUTOMATED 377 10^3/uL (150-450); RED BLOOD COUNT 3.28 10^6/uL (4.00-5.40); WHITE BLOOD COUNT 17.1 10^3/uL (4.0-10.0)
--- NOTE | 2020-01-20 20:03 | REPVR ---
PROCEDURE INFORMATION: Exam: XR Chest, 1 View Exam date and time: 01/20/2020 7:59 PM Age: 89 years old Clinical indication: Condition or disease; Lung condition and disease; Copd TECHNIQUE: Imaging protocol: XR of the chest Views: 1 view. COMPARISON: CR PORTABLE CHEST X-RAY 06/16/2017 12:22 PM FINDINGS: Lungs: Increased markings demonstrated in the right mid and lower lung zone may indicate a interstitial pneumonitis. COPD. Pleural space: Unremarkable. Heart/Mediastinum: Cardiomegaly. Pericardial effusion not excluded. Vasculature: Uncoiled thoracic aorta. Uncoiled thoracic aorta. Bones/joints: Osteoporosis. Degenerative changes both glenohumeral joints. IMPRESSION: 1. Increased markings demonstrated in the right mid and lower lung zone may indicate a interstitial pneumonitis. 2. COPD. Electronically signed by: Adan Spring On 01/20/2020 20:03:58 PM
[2020-01-20 20:16] LABS: ATYPICAL LYMPH 1 % (0-5); BASOPHILS 1 % (0-1); EOSINOPHILS 5 % (0-3); LYMPHOCYTES 10 % (16-44); MONOCYTES 3 % (0-5); NEUTROPHILS 77 % (28-66)
[2020-01-20 20:17] LABS: PLATELET ESTIMATE NORMAL (NORMAL)
--- NOTE | 2020-01-20 20:46 | ECGEPIP ---
[facility] - ED Test Date: 2020-01-20 Pat Name: POORNIMA MARINA Department: Room: - Gender: Female Hr Clerk: EDWARD : [id number] Requested By: KAREN Maurice Order Number: [id number] Reading MD: Haydee Steele Measurements Intervals [place] Rate: 68 P: 73 AR: 175 QRS: 32 QRSD: 86 T: 36 QT: 404 QTc: 431 Interpretive Statements SINUS RHYTHM WITH OCCASIONAL SUPRAVENTRICULAR PREMATURE COMPLEXES LEFT VENTRICULAR HYPERTROPHY AND ST-T CHANGE INCREASED RATE/ECTOPY 06/16/17 Electronically Signed on 01-20-2020 20:46:37 EST by Haydee Steele
[2020-01-20] MEDS: RAMELTEON 8 MG TAB (ROZEREM) PO SCH (21:00)
--- NOTE | 2020-01-20 21:01 | REPVR ---
PROCEDURE INFORMATION: Exam: CT Head Without Contrast Exam date and time: 01/20/2020 8:54 PM Age: 89 years old Clinical indication: Pain; Headache; Additional info: Altered mental status TECHNIQUE: Imaging protocol: Computed tomography of the head without contrast. Radiation optimization: All CT scans at this facility use at least one of these dose optimization techniques: automated exposure control; mA and/or kV adjustment per patient size (includes targeted exams where dose is matched to clinical indication); or iterative reconstruction. COMPARISON: CT Head without contrast 05/22/2018 1:22 PM FINDINGS: Brain: There is moderate to severe age-related parenchymal volume loss. White matter changes are demonstrated in the subcortical, centrum semiovale and periventricular white matter consistent with age related small vessel white matter ischemic changes. Diffuse cerebellar atrophy. Cerebral ventricles: The degree of ventricular dilatation is normal for age and/or degree of atrophy present. Bones/joints: There is hyperostosis frontalis interna. Paranasal sinuses: Bilateral maxillary, splenoid and ethmoid sinusitis. Mastoid air cells: Visualized mastoid air cells are well aerated. Vasculature: Atherosclerotic calcifications are demonstrated in the intracranial carotid arteries bilaterally as well as in the vertebral basilar system. Soft tissues: Unremarkable. IMPRESSION: 1. There is moderate to severe age-related parenchymal volume loss. White matter changes are demonstrated in the subcortical, centrum semiovale and periventricular white matter consistent with age related small vessel white matter ischemic changes. 2. The degree of ventricular dilatation is normal for age and/or degree of atrophy present. 3. Diffuse cerebellar atrophy. 4. Bilateral maxillary, splenoid and ethmoid sinusitis. 5. No acute intracranial findings. Electronically signed by: Adan Spring On 01/20/2020 21:00:57 PM
[2020-01-20 21:22] LABS: BASO # 0.2 10^3/uL (0.0-0.2); BASO % 0.8 % (0.0-1.0); EOS # 0.8 10^3/uL (0.0-0.5); EOS % 4.1 % (0.0-3.0); HEMATOCRIT 34.9 % (36.0-47.0); HEMOGLOBIN 11.1 g/dl (12.0-15.5); LYMPH # 2.2 10^3/uL (1.5-5.0); LYMPH % 11.8 % (24.0-44.0); MEAN CORPUSCULAR HEMOGLOBIN 28.8 pg (27.0-33.0); MEAN CORPUSCULAR HGB CONC 31.8 g/dl (32.0-36.5); MEAN CORPUSCULAR VOLUME 90.6 fl (80.0-96.0); MONO # 1.3 10^3/uL (0.0-0.8); MONO % 6.8 % (0.0-5.0); NEUTROPHILS # 13.9 10^3/uL (1.5-8.5); PLATELET COUNT, AUTOMATED 359 10^3/uL (150-450); RED BLOOD COUNT 3.85 10^6/uL (4.00-5.40); VENOUS BASE EXCESS -1.3 (-2.0-2.0); VENOUS HCO3 24.6 MEQ/L (23.0-27.0); VENOUS O2 SATURATION 56.4 % (60.0-80.0); VENOUS PARTIAL PRESSURE CO2 46.3 mmHg (38.0-50.0); VENOUS PARTIAL PRESSURE O2 31.8 mmHg (30.0-50.0); VENOUS PH 7.343 UNITS (7.330-7.430); VENOUS STANDARD HCO3 22.6 MEQ/L; WHITE BLOOD COUNT 18.5 10^3/uL (4.0-10.0)
[2020-01-20] MEDS ORDERED: IPRATROPIUM 0.5MG/ALBUTEROL 2.5MG INH SOL UD 3ML (DUONEB) NEB ONE (22:00)
[2020-01-20] MEDS ORDERED: LevoFLOXacin IV 500 MG in IV 1 EA IV ONE (22:00)
[2020-01-20 22:01] LABS: OSMOLALITY SERUM 295 MOSM/KG (280-301)
[2020-01-20] MEDS ORDERED: MED REC COMMENT (22:14)
[2020-01-20] MEDS ORDERED: AMLO1TAB24 PO (22:14)
[2020-01-20] MEDS ORDERED: LEVA1.2519 PO (22:14)
[2020-01-20] MEDS ORDERED: HYDR-643 PO (22:14)
[2020-01-20] MEDS ORDERED: LEVE250T5 PO (22:14)
[2020-01-20] MEDS ORDERED: PRAV20TA2 PO (22:14)
[2020-01-20] MEDS ORDERED: SERT50TA29 PO (22:14)
[2020-01-20] MEDS ORDERED: POTASSIUM CHLORIDE 10 MEQ SR TABLET PO ONE (22:15)
[2020-01-20 22:39] LABS: ALBUMIN 1.8 GM/DL (3.2-5.2); ALT/SGPT 63 U/L (12-78); BILIRUBIN,TOTAL 0.2 MG/DL (0.2-1.0); BLOOD UREA NITROGEN 13 MG/DL (7-18); CALCIUM LEVEL 7.6 MG/DL (8.8-10.2); CARBON DIOXIDE LEVEL 24 MEQ/L (21-32); CHLORIDE LEVEL 115 MEQ/L (98-107); CREATININE FOR GFR 0.54 MG/DL (0.55-1.30); GLOMERULAR FILTRATION RATE > 60.0 (>32); GLUCOSE, FASTING 80 MG/DL (70-100); MAGNESIUM LEVEL 1.5 MG/DL (1.8-2.4); SODIUM LEVEL 145 MEQ/L (136-145); TOTAL PROTEIN 4.9 GM/DL (6.4-8.2)
[2020-01-20] MEDS ORDERED: B-12100010 PO (22:41)
[2020-01-20] MEDS ORDERED: BAYE325T12 PO (22:41)
[2020-01-20] MEDS ORDERED: FERR325T16 PO (22:41)
[2020-01-20] MEDS ORDERED: BUDE2SUS3 NEB (22:41)
[2020-01-20] MEDS ORDERED: ADV250INH INH (22:41)
[2020-01-20] MEDS ORDERED: VENTAER INH (22:41)
[2020-01-20] MEDS ORDERED: NAPR220C23 PO (22:41)
[2020-01-20] MEDS ORDERED: MOM 30ML SUSPENSION UDC PO PRN (23:30)
[2020-01-20] MEDS ORDERED: MAALOX 30 ML SUSP *UDC PO PRN (23:30)
[2020-01-20] MEDS ORDERED: ACETAMINOPHEN TAB 650MG DOSE (2X325MG) PO PRN (23:30)
--- NOTE | 2020-01-20 23:36 | HPEPDOC ---
[facility] Medical History & Physical Date of Admission Jan 20, 2020 Date of Service: Jan 20, 2020 Attending Physician: GEORGE MCCALLUM MD History and Physical TIME OF SERVICE: 1105pm CHIEF COMPLAINT: dehydration HISTORY OF PRESENT ILLNESS: The patient has dementia and couldn't provide a history; the majority of the history was obtained from This 89 yr old female was brought to the hospital by her son because he thought though she was dehydrated; she has not eaten for 2 days. Unfortunately her who also had dementia recently passed. At the time of my vist the patient was was trying to fall asleep. She appeared comfortable, admitted to having some abdominal pain only during the physical exam, took a few sips of the gingerale I offered her and then proceeded to cover herself with the blanket and ask us to turn off the light so she could sleep. REVIEW OF SYSTEMS: unobtainable because the patient has dementia PAST MEDICAL/ SURGICAL HISTORY: Dementia Asthma Chronic HTN Dyslipidemia Depression Seizure disorder ? Debility Overactive bladder GERD Hx of Skin cancer SOCIAL HISTORY: Lives in a [place] Former smoker FAMILY HISTORY: unobtainable bc the patient has dementia ALLERGIES: Please see below. HOME MEDICATIONS: Please see below. PHYSICAL EXAMINATION: Vital Signs Date Time Temp Pulse Resp B/P (MAP) Pulse Ox O2 Delivery O2 Flow Rate FiO2 01/20/20 17:32 65 125/69 (87) 01/20/20 17:36 97.9 20 90 Room Air 01/20/20 20:15 2.0 GEN: slim build/ NAD INTEGUMENT: not flushed/ not jaundice HEENT: lips acyanotic /mucus membranes dry & pink CVS: RRR/NMRG LUNGS: able to speak full sentences without stopping to take a breath /lungs are clear to auscultation bilaterally on room air ABDOMEN: Contour (flat) / soft & tender with palpation MSK/EXTREMITIES: NCAT / temporal wasting PSYCH: alert / able to understand and follow simple commands LABORATORY DATA: Laboratory Tests 01/20/20 18:54 01/20/20 21:12 Laboratory Tests 2 01/20/20 18:47: Bedside Glucose (Misc Panel) 91 01/20/20 18:54: Neutrophils (%) (Auto) , Nucleated Red Blood Cells % (auto) 0.0, Neutrophils 77H, Band Neutrophils 3, Lymphocytes (Manual) 10L, Monocytes (Manual) 3, Eosinophils (Manual) 5H, Basophils (Manual) 1, Atypical Lymphocytes 1, Platelet Estimate NORMAL, Anion Gap 7L, Glomerular Filtration Rate > 60.0, Calcium Level 9.3, Total Bilirubin 0.2, Direct Bilirubin < 0.1, Aspartate Amino Transf (AST/SGOT) 60H, Alanine Aminotransferase (ALT/SGPT) 78, Alkaline Phosphatase 106, Total Creatine Kinase 26, Creatine Kinase MB 1.4, Creatine Kinase MB Relative Index 5.38H, Troponin I < 0.02, Total Protein 5.9L, Albumin 2.3L, Albumin/Globulin Ratio 0.6L, Thyroid Stimulating Hormone (TSH) 0.688 01/20/20 21:11: Lactic Acid Level 0.8 01/20/20 21:12: Neutrophils (%) (Auto) 75.0H, Nucleated Red Blood Cells % (auto) 0.0, Anion Gap 6L, Glomerular Filtration Rate > 60.0, Calcium Level 7.6#L, Total Bilirubin 0.2, Aspartate Amino Transf (AST/SGOT) 49H, Alanine Aminotransferase (ALT/SGPT) 63, Alkaline Phosphatase 80, Total Protein 4.9L, Albumin 1.8#L, Albumin/Globulin Ratio 0.6L, Immature Granulocyte % (Auto) 1.5, Lymphocytes (%) (Auto) 11.8L, Monocytes (%) (Auto) 6.8H, Eosinophils (%) (Auto) 4.1H, Basophils (%) (Auto) 0.8, Neutrophils # (Auto) 13.9H, Lymphocytes # (Auto) 2.2, Monocytes # (Auto) 1.3H, Eosinophils # (Auto) 0.8H, Basophils # (Auto) 0.2, Blood Gas Bicarbonate Standard 22.6, Venous Blood pH 7.343, Venous Blood Partial Pressure CO2 46.3, Venous Blood Partial Pressure O2 31.8, Venous Blood Total Carbon Dioxide 26.0, Venous Blood HCO3 24.6, Venous Blood Oxygen Saturation 56.4L, Venous Blood Base Excess -1.3, Osmolality 295, Magnesium Level 1.5L IMAGING: CT head "IMPRESSION: 1. There is moderate to severe age-related parenchymal volume loss. White matter changes are demonstrated in the subcortical, centrum semiovale and periventricular white matter consistent with age related small vessel white matter ischemic changes. 2. The degree of ventricular dilatation is normal for age and/or degree of atrophy present. 3. Diffuse cerebellar atrophy. 4. Bilateral maxillary, splenoid and ethmoid sinusitis. 5. No acute intracranial findings." Chest xray "1. Increased markings demonstrated in the right mid and lower lung zone may indicate a interstitial pneumonitis. 2. COPD." MICROBIOLOGY: UCx & COVID pending..... 01/20/20 Blood Culture, Received Pending ASSESSMENT: Ms. Kwok is an 89-year-old with a history of dementia, depression, asthma, HTN, dyslipidemia, seizure disorder, and unsteady gait who was brought in by her son because of poor appetite; she c/o of abdominal pain during the exam and will be admitted for management of dehydration and evaluation of abdominal pain. PLAN: 1. Dehydration I suspect that she is not eating as much due to bereavement after the loss of her . As her dementia gets worse she will also continue to eat less food Plan: admit to medical floor / IVF 2. Hypokalemia & Hypomagnesemia 2/2 poor oral intake Plan: telemetry / IV KCl w NS / IV Mag Sulfate 3. Abdominal Pain She also has leukocytosis and elevated AST UA neg Plan: f/u f/u Hep panel & LFTs 4. Dementia Plan: 1:1 sitter 5. Asthma Plan: albuterol PRN, budesonide neb & salmeterol/fluticasone 6. Chronic HTN Plan: amlodipine 7. Dyslipidemia Plan: pravastatin 8. Seizure disorder ? Plan: Keppra 9. Overactive bladder Plan: oxybutynin DVT PROPHYLAXIS: lovenox DISPOSITION: home after more than 2 midnight's stay Home Medications Scheduled Amlodipine Besylate (Amlodipine Besylate) 5 Mg Tablet, 5 MG PO BID Aspirin (Aspirin) 325 Mg Tablet, 325 MG PO QAM Budesonide (Budesonide) 1 Mg/2 Ml Ampul.neb, 2 ML NEB BID Clopidogrel Bisulfate (Clopidogrel) 75 Mg Tab, 75 MG PO DAILY Cyanocobalamin (Vitamin B-12) (Vitamin B-12) 1,000 Mcg Capsule, 1,000 MCG PO DAILY Ferrous Gluconate (Ferrous Gluconate) 324 Mg Tablet, 324 MG PO DAILY Levetiracetam (Levetiracetam) 250 Mg Tablet, 250 MG PO BID Omeprazole (Omeprazole) 20 Mg Cap, 20 MG PO DAILY Oxybutynin Chloride (Oxybutynin Chloride ER) 10 Mg Tab, 10 MG PO DAILY Pravastatin Sodium (Pravastatin Sodium) 20 Mg Tablet, 20 MG PO DAILY Salmeterol/Fluticasone (Advair 250-50 Diskus) 1 Each Blst.w.dev, 1 PUFF INH BID Scheduled PRN Albuterol Sulfate (Ventolin Hfa) 18 Gm Hfa.aer.ad, 2 PUFFS INH Q4H PRN for SHORTNESS OF BREATH Hydroxyzine HCl (Hydroxyzine HCl) 10 Mg Tablet, 10 MG PO TID PRN for ANXIETY Naproxen Sodium (Naproxen Sodium) 220 Mg Capsule, 220 MG PO DAILY PRN for PAIN Allergies Coded Allergies: Sulfa (Sulfonamide Antibiotics) (Verified Allergy, Severe, HIVES, ) Penicillins (Verified Allergy, Intermediate, 05/22/18) A-FIB/CHADSVASC A-FIB History Current/History of A-Fib/PAF?: No Current PO Anticoag Therapy: No GEORGE MCCALLUM MD Jan 20, 2020 23:36
[2020-01-20 23:47] LABS: APPEARANCE, URINE HAZY (CLEAR); BACTERIA, URINE AUTO NEGATIVE (NEGATIVE); BILIRUBIN, URINE AUTO NEGATIVE (NEGATIVE); BLOOD, URINE BLOOD NEGATIVE (NEGATIVE); CALCIUM OXALATE CRYSTALS SMALL; COLOR, URINE YELLOW (YELLOW); GLUCOSE, URINE (UA) AUTO NEGATIVE (NEGATIVE); KETONE, URINE AUTO NEGATIVE (NEGATIVE); LEUKOCYTE ESTERASE, URINE AUTO NEGATIVE (NEGATIVE); MUCUS, URINE SMALL (NEGATIVE); NITRITE, URINE AUTO NEGATIVE (NEGATIVE); PROTEIN, URINE AUTO 1+ mg/dL (NEGATIVE); RBC, URINE AUTO 1 /HPF (0-3); SPECIFIC GRAVITY URINE AUTO 1.019 (1.002-1.035); SQUAMOUS EPITHELIAL CELL UR AU 0 /HPF (0-6); UROBILINOGEN, URINE AUTO 0.2 mg/dL (0.0-2.0); WBC, URINE AUTO 1 /HPF (0-3)
[2020-01-21] MEDS ORDERED: MAGNESIUM SULFATE 1GM/100ML D5W BAG (10MG/ML) IV ONE (01:00)
[2020-01-21] MEDS ORDERED: ALBUTEROL 90 MCG/ACT 8GM HFA INHALER INH PRN (02:45)
[2020-01-21] MEDS ORDERED: hydrOXYzine 10 MG TAB PO PRN (02:45)
[2020-01-21] MEDS: KCL 40MEQ in NS 1000ML 1,000 ML IV SCH ×2 (03:16→16:40)
[2020-01-21 06:30] VITALS: BP 140/71
[2020-01-21] MEDS ORDERED: POTASSIUM CHLORIDE 10 MEQ SR TABLET PO ONE (07:15)
--- NOTE | 2020-01-21 07:15 | IPNPDOC ---
Text Note Date of Service The patient was seen on 01/21/20. NOTE SUBJECTIVE: Ms. Kwok was seen and examined at bedside this morning. She was lying on her side and appeared confused. She was fixated on her son coming to pick her up at 9 am. Pt was unable to answer most ROS questions however, she admitted to some abdominal pain, nausea and decreased appetite. She denied dizziness, chills and fevers. She was not oriented to time and place. On PE, she was tender on palpation of LLQ and was coughing periodically. Pt lives in an assisted living apartment in [place] receiving 24 hr nursing care and lost her recently. Pts son states that she has had decreased oral intake for the last 3 days, prompting hospital visit. Old records are being obtained for indication of Plavix 75 mg and ASA 325 mg therapy. OBJECTIVE: VITAL SIGNS: Please see below. CONSTITUTIONAL: Pt is comfortable lying in bed and no respiratory distress. HEENT: PERRL. No lymphadenopathy noted. Dry oral mucus membranes. CV: S1S2 present. RRR. No murmurs, rubs or gallops. RESPIRATORY: Some crackles and wheezing heard in lower lung garibay. No adventitious breath sounds appreciated. ABDOMEN: Tender to palpation in LLQ. Bowel sounds normoactive in all 4 quadrants. EXTREMITIES: No edema noted. Pulses 3+ NEUROLOGICAL: No obvious focal neurologic. Not oriented to time and place. Pt has dementia. PSYCHIATRIC: Pt has normal mood and affect. ASSESSMENT: Ms. Kwok is an 89 year old female with a PMH of dementia, asthma, HTN, dyslipidemia, seizure disorder, overactive bladder, and depression who presents with decreased oral intake, dehydration and abdominal pain. She was found to have hypokalemia, hypomagnesemia and leukocytosis w/ neutrophil predominance. Pt admitted for management of electrolyte imbalance and further assessment of abdominal pain. Plan to obtain outpatient records as we do not have a clear reason as to why patient is on DAPT. PT/OT consulted, pending their recommendations, will discuss discharge planning with patient's son as to whether or not she is to return home with 24/hr nurse care or SNIF. PLAN: #Hypokalemia and hypomagnesemia -Potassium level of 2.7, Mag level of 1.5 -Receiving 40 mEq KCl in 1000 mL NS @ 60mLs/hr -Received Potassium 40 mEq PO -Received 1 gm IV magnesium sulfate/dextrose, ordered 2 more gm. -Telemetry, Recheck potassium and mag at 2 pm #Leukocytosis with neutrophil predominance -WBC count of 17.1 on admission. Current WBC of 16.6 -13.9 neutrophils - 75% -CXR showed increased markings in right mid/lower lung zone concerning for possible interstitial pneumonitis. -In ED, received Levoflaxacin IV 100mL, we will hold on further antibiotic therapy as there is no clear bacterial etiology -UA culture pending, blood culture pending #Dehydration -Received bolus of NS. #Elevated AST -AST was 60 on admission. Now resolved at 37. -UA wnl. Hep Bs antigen negative. Hepatitis panel pending #Asthma -Albuterol PRN, Budesonide 0.25 mg neb, Salmetrol/fluticasone inhaler #Dementia -CT Head showed no acute findings. Moderate to severe age-related parenchymal volume loss. White matter changes are demonstrated in the subcortical, centrum semiovale and periventricular white matter consistent with age related small vessel white matter ischemic changes. Diffuse cerebellar atrophy. -1:1 Sitter #Chronic HTN -Normotensive -Continue Amlodipine 5 mg PO BID #Dyslipidemia - Pravastatin #Seizure disorder -Levetiracetam 250 mg PO BID -Last seizure was years ago per hx from son #Overactive bladder -Oxybutynin 10 mg PO daily #Mood disorder -Hydroxyzine 10 mg PO DVT PROPHYLAXIS: Lovenox 40 mg daily DISPOSITION: Pending PT eval and recommendations CONTACT: Roger Kwok [phone] Friend Archana Coffey [phone] VS,Nunu, I+O VS, Jolenee, I+O Laboratory Tests 01/20/20 18:54 01/20/20 21:12 Vital Signs Date Time Temp Pulse Resp B/P (MAP) Pulse Ox O2 Delivery O2 Flow Rate FiO2 01/21/20 06:30 97.2 90 19 140/71 (94) 95 Nasal Cannula 2.0 I&O- Last 24 Hours up to 6 AM 01/21/20 06:00 Intake Total 1420 ml Output Total 400 ml Balance 1020 ml GME ATTESTATION GME ATTESTATION My faculty preceptor for this patient encounter was physically present during t he encounter and was fully available. All aspects of the patient interview, examination, medical decision making process, and medical care plan development were reviewed and approved by the faculty preceptor. The faculty preceptor is aware and concurs with the plan as stated in the body of this note and will attest to such by his/her cosignature. ATTENDING NOTE Pt was seen and examined at the bedside with the residents/students at the bedside by me personally. Agree with the assessment and plan. FELIPE GAVIN DO Jan 21, 2020 07:15 MANE BRAGG MD Jan 28, 2020 11:15
[2020-01-21 07:27] LABS: HEMATOCRIT 32.6 % (36.0-47.0); HEMOGLOBIN 11.3 g/dl (12.0-15.5); MEAN CORPUSCULAR HGB CONC 34.7 g/dl (32.0-36.5); MEAN CORPUSCULAR VOLUME 95.3 fl (80.0-96.0); PLATELET COUNT, AUTOMATED 386 10^3/uL (150-450); RED BLOOD COUNT 3.42 10^6/uL (4.00-5.40); WHITE BLOOD COUNT 16.6 10^3/uL (4.0-10.0)
[2020-01-21 07:38] LABS: ALBUMIN 2.2 GM/DL (3.2-5.2); ALT/SGPT 64 U/L (12-78); BILIRUBIN,TOTAL 0.3 MG/DL (0.2-1.0); BLOOD UREA NITROGEN 10 MG/DL (7-18); CALCIUM LEVEL 8.8 MG/DL (8.8-10.2); CARBON DIOXIDE LEVEL 26 MEQ/L (21-32); CHLORIDE LEVEL 108 MEQ/L (98-107); CREATININE FOR GFR 0.65 MG/DL (0.55-1.30); GLOMERULAR FILTRATION RATE > 60.0 (>32); GLUCOSE, FASTING 97 MG/DL (70-100); POTASSIUM SERUM 2.7 MEQ/L (3.5-5.1); SODIUM LEVEL 141 MEQ/L (136-145); TOTAL PROTEIN 6.6 GM/DL (6.4-8.2)
[2020-01-21] MEDS: levETIRAcetam 250MG TABLET (KEPPRA) PO SCH ×2 (09:00→20:59)
[2020-01-21] MEDS: amLODIPine 5 MG TAB PO SCH ×2 (09:00→21:03)
[2020-01-21] MEDS: ASPIRIN 325 MG TAB PO SCH (09:00)
[2020-01-21] MEDS: CLOPIDOGREL 75 MG TAB PO SCH (09:00)
[2020-01-21] MEDS: ENOXAPARIN 40MG/0.4ML SYRINGE (J1650 PER 10MG) SC SCH (09:00)
[2020-01-21] MEDS: oxyBUTYnin *DITROPAN XL* 5 MG TABCR PO SCH (09:00)
[2020-01-21 11:04] LABS: HEPATITIS B SURFACE ANTIGEN NEGATIVE (NEGATIVE)
[2020-01-21 11:32] LABS: HEPATITIS B CORE ANTIBODY IGM NEGATIVE (NEGATIVE)
[2020-01-21 11:33] LABS: HEPATITIS A ANTIBODY IGM NEGATIVE (NEGATIVE)
[2020-01-21] MEDS: MAG SULF 1GM/100ML (MAG RUN) 1 GM in IV 1 EA IV SCH ×2 (11:52→13:07)
[2020-01-21 14:00] VITALS: BP 142/70
[2020-01-21] MEDS: ADVAIR HFA 115/21MCG INHALER INH SCH ×2 (14:36→19:35)
[2020-01-21] MEDS: BUDESONIDE 0.25 MG/2 ML INHALATION SUSPENSION INH SCH ×2 (14:36→19:35)
[2020-01-21] MEDS: KCL 10MEQ/100ML SWI (KRUN) 10 MEQ in IV 1 EA IV SCH ×2 (15:48→17:34)
[2020-01-21 16:36] LABS: BLOOD UREA NITROGEN 9 MG/DL (7-18); CALCIUM LEVEL 8.8 MG/DL (8.8-10.2); CARBON DIOXIDE LEVEL 25 MEQ/L (21-32); CHLORIDE LEVEL 106 MEQ/L (98-107); CREATININE FOR GFR 0.58 MG/DL (0.55-1.30); GLOMERULAR FILTRATION RATE > 60.0 (>32); GLUCOSE, FASTING 106 MG/DL (70-100); SODIUM LEVEL 138 MEQ/L (136-145)
[2020-01-21] MEDS ORDERED: KCL 10MEQ IN STERILE WATER 100ML As Ordered ONE (17:32)
[2020-01-21] MEDS: RAMELTEON 8 MG TAB (ROZEREM) PO SCH (20:59)
[2020-01-21 22:00] VITALS: BP 133/76
[2020-01-22] MEDS: KCL 40MEQ in NS 1000ML 1,000 ML IV SCH ×2 (04:51→21:32)
[2020-01-22 06:00] VITALS: BP 96/54
--- NOTE | 2020-01-22 07:08 | IPNPDOC ---
Text Note Date of Service The patient was seen on 01/22/20. NOTE SUBJECTIVE: Ms. Kwok was seen and examined at bedside this morning. She was lying on her right side and distressed about pain in her right lower quadrant. She was tender to palpation in right lower quadrant. There was no overlying erythema or visible skin changes over the area. She admitted to abdominal pain, nausea and decreased appetite. She denies dizziness, chills and fever. She was not oriented to time and place. Pt still seems confused and disoriented. Pt lives in an assisted living apartment in [place] receiving 24 hr nursing care and lost her recently. Pts son states that she has had decreased oral intake since , prompting hospital visit. OBJECTIVE: VITAL SIGNS: Please see below. CONSTITUTIONAL: Pt is lying in bed distressed about abdominal pain and no respiratory distress. HEENT: PERRL. No lymphadenopathy noted. Dry, oral mucus membranes. CV: S1S2 present. RRR. No murmurs, rubs or gallops. RESPIRATORY: Some crackles and wheezing heard in lower lung garibay. No adventitious breath sounds appreciated. ABDOMEN: Tender to palpation in RLQ. Bowel sounds normoactive in all 4 quadrants. EXTREMITIES: No edema noted. Pulses 3+ NEUROLOGICAL: No obvious focal neurologic deficits. Not oriented to time and place. Pt has dementia. PSYCHIATRIC: Pt has normal mood and affect. ASSESSMENT: Ms. Kwok is an 89 year old female with a PMH of dementia, asthma, HTN, dyslipidemia, seizure disorder, overactive bladder, and depression who presents with decreased oral intake, dehydration and abdominal pain. She was found to have hypokalemia and leukocytosis w/ neutrophil predominance. Pt admitted for management of electrolyte imbalance and further assessment of abdominal pain. Waiting on copy of outpatient records to clarify reasoning for patient being on DAPT. Per PT, pt needs 2 people for assistance and they will continue working with her today. Abdominal pain could be attributed to constipation as pt refused stool softener and has poor oral intake. Pt given prune juice as alternative and encouraging oral intake. PLAN: #Hypokalemia and hypomagnesemia -Resolving with most recent potassium level of 3.6, Mag level of 2.0. -Received 4x 10 mEq IV potassium -Received 2 bags of 1 gm IV magnesium/sulfate dextrose -Telemetry #Leukocytosis with neutrophil predominance -Resolving. WBC count of 17.1 on admission. Current WBC of 13.1. -13.9 neutrophils 75% -CXR showed increased markings in right mid/lower lung zone concerning for possible interstitial pneumonitis. -In ED, received Levoflaxacin IV 100 mL, we will hold on further antibiotic therapy as there is no clear bacterial etiology. -UA culture pending. -Blood culture showed gram positive cocci in clusters. Suspect S.aureus contamination, repeat blood cultures x2 #Debility -Patient working with PT/OT -Currently 2 person assist. Pt does have 24/7 nursing care at home -Plan to discuss discharge plan with patient's son once medically optimized #Abdominal Pain -Pt reports intermittent, nonspecific abdominal pain -Suspect constipation. Patient currently refusing bowel care -Will attempt to supplement with prune juice -Continue to monitor #Dehydration -Received bolus of NS. -Continue IVF 40 mEq KCl in 1000mL NS # Chronic HTN - normotensive - continue amlodipine 5 mg PO BID #Dyslipidemia -Pravastatin #Seizure disorder - Levetiracetam 250 mg PO BID - Last seizure was years ago per hx from son #Overactive bladder - Oxybutynin 10 mg PO daily #Mood disorder - Hydroxyzine 10 mg PO DVT PROPHYLAXIS: Lovenox 40 mg daily DISPOSITION: Encourage oral intake, continue working with PT/OT, possible discharge tomorrow VS,Nunu, I+O VS, Nunu, I+O Laboratory Tests 01/21/20 15:50 Vital Signs Date Time Temp Pulse Resp B/P (MAP) Pulse Ox O2 Delivery O2 Flow Rate FiO2 01/22/20 06:00 98.1 64 18 96/54 (68) 94 Nasal Cannula 2.0 I&O- Last 24 Hours up to 6 AM 01/22/20 06:00 Intake Total 1080 ml Output Total 500 ml Balance 580 ml GME ATTESTATION GME ATTESTATION My faculty preceptor for this patient encounter was physically present during the encounter and was fully available. All aspects of the patient interview, examination, medical decision making process, and medical care plan development were reviewed and approved by the faculty preceptor. The faculty preceptor is aware and concurs with the plan as stated in the body of this note and will attest to such by his/her cosignature. ATTENDING NOTE Pt was seen and examined at the bedside with the residents/students at the bedside by me personally. Agree with the assessment and plan. FELIPE GAVIN DO Jan 22, 2020 07:08 MANE BRAGG MD Jan 28, 2020 11:16
[2020-01-22] MEDS ORDERED: KCL 10MEQ/100ML SWI (KRUN) 10 MEQ in IV 1 EA IV SCH (08:00)
[2020-01-22 08:25] LABS: HEMOGLOBIN 12.9 g/dl (12.0-15.5); MEAN CORPUSCULAR HEMOGLOBIN 40.7 pg (27.0-33.0); MEAN CORPUSCULAR VOLUME 97.8 fl (80.0-96.0); PLATELET COUNT, AUTOMATED 278 10^3/uL (150-450); RED BLOOD COUNT 3.17 10^6/uL (4.00-5.40); WHITE BLOOD COUNT 13.1 10^3/uL (4.0-10.0)
[2020-01-22 08:26] LABS: BLOOD UREA NITROGEN 7 MG/DL (7-18); CALCIUM LEVEL 8.4 MG/DL (8.8-10.2); CARBON DIOXIDE LEVEL 24 MEQ/L (21-32); CHLORIDE LEVEL 108 MEQ/L (98-107); CREATININE FOR GFR 0.51 MG/DL (0.55-1.30); GLOMERULAR FILTRATION RATE > 60.0 (>32); GLUCOSE, FASTING 82 MG/DL (70-100); POTASSIUM SERUM 3.6 MEQ/L (3.5-5.1); SODIUM LEVEL 138 MEQ/L (136-145)
[2020-01-22] MEDS: ENOXAPARIN 40MG/0.4ML SYRINGE (J1650 PER 10MG) SC SCH (09:00)
[2020-01-22 09:02] LABS: MEAN CORPUSCULAR HGB CONC 41.6 g/dl (32.0-36.5)
[2020-01-22] MEDS ORDERED: KCL 10MEQ IN STERILE WATER 100ML As Ordered ONE (09:02)
[2020-01-22] MEDS: CLOPIDOGREL 75 MG TAB PO SCH (09:07)
[2020-01-22] MEDS: oxyBUTYnin *DITROPAN XL* 5 MG TABCR PO SCH (09:07)
[2020-01-22] MEDS: ASPIRIN 325 MG TAB PO SCH (09:07)
[2020-01-22] MEDS: levETIRAcetam 250MG TABLET (KEPPRA) PO SCH ×2 (09:07→21:29)
[2020-01-22] MEDS: amLODIPine 5 MG TAB PO SCH ×2 (09:11→21:30)
[2020-01-22] MEDS: ADVAIR HFA 115/21MCG INHALER INH SCH ×2 (13:58→20:00)
[2020-01-22] MEDS: BUDESONIDE 0.25 MG/2 ML INHALATION SUSPENSION INH SCH ×2 (13:58→20:00)
[2020-01-22 14:00] VITALS: BP 129/61
[2020-01-22] MEDS: RAMELTEON 8 MG TAB (ROZEREM) PO SCH (21:29)
[2020-01-22 22:00] VITALS: BP 133/56
[2020-01-23] MEDS: KCL 40MEQ in NS 1000ML 1,000 ML IV SCH ×2 (00:03→17:04)
--- NOTE | 2020-01-23 07:12 | IPNPDOC ---
Text Note Date of Service The patient was seen on 01/23/20. NOTE SUBJECTIVE: Ms. Kwok was seen and examined at bedside this morning. She was lying on her left side and stated that her side hurts. She pointed to her RUQ and that area was tender to palpation. There was no overlying erythema or visible skin changes over the area. She has had poor oral intake since admission. There were no acute changes overnight since previous day. Pt still seems confused and disoriented. Pt lives in an assisted living apartment in [place] receiving 24 hr nursing care and lost her recently. Pts son states that she has had decreased oral intake since , prompting hospital visit. OBJECTIVE: VITAL SIGNS: Please see below. CONSTITUTIONAL: Pt is lying in bed distressed about abdominal pain and no respiratory distress. HEENT: PERRL. No lymphadenopathy noted. Dry, oral mucus membranes. CV: S1S2 present. RRR. No murmurs, rubs or gallops. RESPIRATORY: Some crackles and wheezing heard in lower lung garibay. No adventitious breath sounds appreciated. ABDOMEN: Tender to palpation in RUQ. Bowel sounds normoactive in all 4 quadrants. EXTREMITIES: No edema noted. Pulses 3+ NEUROLOGICAL: No obvious focal neurologic deficits. Not oriented to time and place. Pt has dementia. PSYCHIATRIC: Pt has normal mood and affect. ASSESSMENT: Ms. Kwok is an 89 year old female with a PMH of dementia, asthma, HTN, dyslipidemia, seizure disorder, overactive bladder, and depression who presents with decreased oral intake, dehydration and abdominal pain. She was found to have hypokalemia and leukocytosis w/ neutrophil predominance. Pt admitted for management of electrolyte imbalance and further assessment of abdominal pain. Outpatient records showed no indication for patient being on DAPT. Plavix will be discontinued. PT will continue working with her today. Pt complains of abdominal pain in RUQ today and nurse reports good bowel movements. CT abdomen is ordered to rule out abdominal pathology related to this pain. Pt currently has O2 saturation of 93% on 2 L/min of oxygen. PLAN: #Pneumonia -CT abdomen showed right lower lobe pneumonia and a small right pleural effusion. Possible developing right middle lobe pneumonia. Likely left base subsegmental atelectatic changes. Large right renal cyst. Bilateral renal calcifications as described above. Large hiatal hernia. -Ordered one time dose of IV Levofloxacin 500mg and 250mg IV dose daily #Hypokalemia and hypomagnesemia -Resolving with most recent potassium level of 3.6, Mag level of 2.0. -Received 4x 10 mEq IV potassium -Received 2 bags of 1 gm IV magnesium/sulfate dextrose -Telemetry #Leukocytosis with neutrophil predominance -Resolving. WBC count of 17.1 on admission. Most recent WBC of 13.1 -Blood culture showed gram positive cocci in clusters. Suspect S.aureus contamination -Pending CBC and repeat blood cultures x2. Pt refusing blood draws. -13.9 neutrophils 75% -CXR showed increased markings in right mid/lower lung zone concerning for possible interstitial pneumonitis. -In ED, received Levoflaxacin IV 100 mL, we will hold on further antibiotic therapy as there is no clear bacterial etiology. -UA culture negative. No growth. #Debility -Patient working with PT/OT -Currently 2 person assist. Pt does have 24/7 nursing care at home -Plan to discuss discharge plan with patient's son once medically optimized #Abdominal Pain -Pt reports intermittent, nonspecific abdominal pain -Patient has had 4 bowel movements since admission. Patient currently refusing bowel care. Supplement with prune juice -CT Abd/Pelv failed to show any acute pathology that could explain her abdominal pain, suspect referral from diaphragmatic irritation. #Dehydration -Received bolus of NS. -Continue IVF 40 mEq KCl in 1000mL NS # Chronic HTN -Normotensive -Continue amlodipine 5 mg PO BID #Dyslipidemia -Pravastatin #Seizure disorder -Levetiracetam 250 mg PO BID -Last seizure was years ago per hx from son #Overactive bladder -Oxybutynin 10 mg PO daily #Mood disorder -Hydroxyzine 10 mg PO DVT PROPHYLAXIS: Lovenox 40 mg daily DISPOSITION: Newly diagnosed PNA. Begin IV Abx today. VS,Fishbone, I+O VS, Fishbone, I+O Laboratory Tests 01/22/20 07:57 Vital Signs Date Time Temp Pulse Resp B/P (MAP) Pulse Ox O2 Delivery O2 Flow Rate FiO2 01/23/20 06:00 97.2 70 18 93 Nasal Cannula 2.0 01/22/20 22:00 133/56 (81) I&O- Last 24 Hours up to 6 AM 01/23/20 06:00 Intake Total 1640 ml Output Total 1200 ml Balance 440 ml GME ATTESTATION GME ATTESTATION My faculty preceptor for this patient encounter was physically present during the encounter and was fully available. All aspects of the patient interview, examination, medical decision making process, and medical care plan development were reviewed and approved by the faculty preceptor. The faculty preceptor is aware and concurs with the plan as stated in the body of this note and will attest to such by his/her cosignature. FELIPE GAVIN DO Jan 23, 2020 07:12
[2020-01-23] MEDS: ADVAIR HFA 115/21MCG INHALER INH SCH ×2 (07:46→20:00)
[2020-01-23] MEDS: BUDESONIDE 0.25 MG/2 ML INHALATION SUSPENSION INH SCH ×2 (07:48→20:00)
[2020-01-23] MEDS: ENOXAPARIN 40MG/0.4ML SYRINGE (J1650 PER 10MG) SC SCH (11:08)
[2020-01-23] MEDS: levETIRAcetam 250MG TABLET (KEPPRA) PO SCH ×2 (11:09→20:37)
[2020-01-23] MEDS: oxyBUTYnin *DITROPAN XL* 5 MG TABCR PO SCH (11:09)
[2020-01-23] MEDS: CLOPIDOGREL 75 MG TAB PO SCH (11:09)
[2020-01-23] MEDS: ASPIRIN 325 MG TAB PO SCH (11:09)
[2020-01-23] MEDS: amLODIPine 5 MG TAB PO SCH ×2 (11:14→20:40)
--- NOTE | 2020-01-23 12:34 | REP ---
INDICATION: Diffuse abdominal pain. COMPARISON: None TECHNIQUE: No intravenous contrast or oral bowel preparatory contrast administration. FINDINGS: There is a patchy opacity and evidence of dense consolidation in the right lower lobe of the lungs. There is a small right pleural effusion. Patchy opacities are also seen in the right middle lobe. There is four-chamber cardiac enlargement. There is a large hiatal hernia. Limited evaluation of the liver, gallbladder, spleen, and adrenal glands show no gross abnormalities. There is pancreatic atrophy and fatty infiltration. There are bilateral renal calcifications most consistent with darren-vascular vascular calcifications. Tiny bilateral nonobstructing nephroliths are also noted. Seen arising from the inferior pole of the right kidney there is a large 5.4 cm sized smoothly marginated low-density structure which has water density Hounsfield unit readings and is without septations or mural nodules. Age-related calcific atheromatous changes seen in the abdominal aorta. Limited evaluation of the bowel loops in the mesenteries show no gross abnormalities. There is no free fluid or free air. Bone window technique throughout the examination shows chronic spinal degenerative changes and other age related osseous changes. IMPRESSION: 1. Right lower lobe pneumonia and small right pleural effusion. 2. Possible developing right middle lobe pneumonia. 3. Likely left base subsegmental atelectatic changes. 4. Large right renal cyst. 5. Bilateral renal calcifications as described above. 6. Large hiatal hernia. 7. Other findings as described above. <Electronically signed by Fred Foy > 01/23/20 0203
[2020-01-23] MEDS ORDERED: LevoFLOXacin IV 500 MG in IV 1 EA IV ONE (13:00)
[2020-01-23] MEDS ORDERED: ZOLO50TA PO (13:59)
[2020-01-23 14:00] VITALS: BP 141/65
[2020-01-23] MEDS: SERTRALINE HCL 50 MG TAB PO SCH ×2 (14:15→15:30)
[2020-01-23] MEDS: RAMELTEON 8 MG TAB (ROZEREM) PO SCH (20:37)
[2020-01-24 06:00] VITALS: BP 135/70
--- NOTE | 2020-01-24 07:22 | IPNPDOC ---
Text Note Date of Service The patient was seen on 01/24/20. VS,Fishbone, I+O VS, Fishbone, I+O Vital Signs Date Time Temp Pulse Resp B/P (MAP) Pulse Ox O2 Delivery O2 Flow Rate FiO2 01/23/20 21:00 2.0 01/23/20 20:40 64 121/43 01/23/20 14:00 99.2 20 95 Nasal Cannula I&O- Last 24 Hours up to 6 AM 01/24/20 06:00 Intake Total 1840 ml Output Total 950 ml Balance 890 ml FELIPE GAVIN DO Jan 24, 2020 07:22
[2020-01-24] MEDS: ADVAIR HFA 115/21MCG INHALER INH SCH ×2 (07:23→19:50)
[2020-01-24] MEDS: BUDESONIDE 0.25 MG/2 ML INHALATION SUSPENSION INH SCH ×2 (07:23→19:50)
[2020-01-24] MEDS: ENOXAPARIN 40MG/0.4ML SYRINGE (J1650 PER 10MG) SC SCH (09:00)
[2020-01-24] MEDS: oxyBUTYnin *DITROPAN XL* 5 MG TABCR PO SCH (09:01)
[2020-01-24] MEDS: amLODIPine 5 MG TAB PO SCH ×2 (09:02→20:25)
[2020-01-24] MEDS: SERTRALINE HCL 50 MG TAB PO SCH (09:02)
[2020-01-24] MEDS: ASPIRIN 325 MG TAB PO SCH (09:02)
[2020-01-24] MEDS: OMEPRAZOLE 20 MG CAP PO SCH (09:02)
[2020-01-24] MEDS: FERROUS GLUCONATE 324 MG TAB PO SCH (09:02)
[2020-01-24] MEDS: PRAVASTATIN 20 MG TAB PO SCH (09:02)
[2020-01-24] MEDS: CLOPIDOGREL 75 MG TAB PO SCH (09:02)
[2020-01-24] MEDS: levETIRAcetam 250MG TABLET (KEPPRA) PO SCH ×2 (09:02→20:25)
--- NOTE | 2020-01-24 11:07 | IPNPDOC ---
Text Note Date of Service The patient was seen on 01/24/20. NOTE SUBJECTIVE: Ms. Kwok was seen and examined at bedside this morning. She was lying comfortably in bed. There were no acute changes overnight since previous day. She has had poor oral intake since admission and is currently refusing all blood work. Pt still seems confused and disoriented. Pt lives in an assisted living apartment in [place] receiving 24 hr nursing care and lost her recently. Pts son states that she has had decreased oral intake since thanksgi, prompting hospital visit. OBJECTIVE: VITAL SIGNS: Please see below. CONSTITUTIONAL: Pt is lying in bed distressed about abdominal pain and no respiratory distress. HEENT: PERRL. No lymphadenopathy noted. Dry, oral mucus membranes. CV: S1S2 present. RRR. No murmurs, rubs or gallops. RESPIRATORY: Clear to auscultation in all lung garibay with poor inspiratory effort. No adventitious breath sounds appreciated. ABDOMEN: Tender to palpation in RLQ. Bowel sounds normoactive in all 4 quadrants. EXTREMITIES: No edema noted. Pulses 3+ NEUROLOGICAL: No obvious focal neurologic deficits. Not oriented to time and place. Pt has dementia. PSYCHIATRIC: Pt has normal mood and affect. ASSESSMENT: Ms. Kwok is an 89 year old female with a PMH of dementia, asthma, HTN, dyslipidemia, seizure disorder, overactive bladder, and depression who presents with decreased oral intake, dehydration and abdominal pain. She was found to have hypokalemia and leukocytosis w/ neutrophil predominance. Pt admitted for management of electrolyte imbalance and further assessment of abdominal pain. PT will continue working with her today. Pt complains of abdominal pain in RLQ today and nurse reports good bowel movements but poor oral intake. CT abdomen showed pneumonia and is being treated with levofloxacin. Pt currently has O2 saturation of 92% on 2 L/min of oxygen. We will try to obtain blood work today and if she still refuses, despite counseling on risks and benefits, her wishes will be respected and she will be discharged to home tomorrow. PLAN: #Pneumonia - CT abdomen showed right lower lobe pneumonia and a small right pleural effusion. Possible developing right middle lobe pneumonia. Likely left base subsegmental atelectatic changes. Large right renal cyst. Bilateral renal calcifications as described above. Large hiatal hernia. - Ordered one time dose of IV Levofloxacin 500mg and continue 250mg IV dose daily #Hypokalemia and hypomagnesemia - Resolving with most recent potassium level of 3.6, Mag level of 2.0. - Pending repeat CBC, BMP and Mag level. Pt currently refusing blood work. - Received 4x 10 mEq IV potassium - Received 2 bags of 1 gm IV magnesium/sulfate dextrose - Discontinued telemetry #Leukocytosis with neutrophil predominance - Resolving. WBC count of 17.1 on admission. Most recent WBC of 13.1. - First blood culture grew S. epidermidis. Repeat culture showed no growth after 24 hours. - 13.9 neutrophils 75% - CXR showed increased markings in right mid/lower lung zone concerning for possible interstitial pneumonitis. - In ED, received Levoflaxacin IV 100 mL. Restart IV Levoflaxacin therapy for pneumonia found on CT abdomen. - UA culture negative. No growth. #Debility - Patient working with PT/OT - Currently 2 person assist. Pt does have 13/09 nursing care at home - Plan to discuss discharge plan with patient's son once medically optimized #Abdominal Pain - Pt reports intermittent, nonspecific abdominal pain - Patient has had 4 bowel movements since admission. Patient currently refusing bowel care. Supplement with prune juice - CT Abd/Pelv failed to show any acute pathology that could explain her abdom inal pain, suspect referral from diaphragmatic irritation. #Dehydration - Received bolus of NS. - Discontinued IVF maintenance fluids of 40 mEq KCl in 1000mL NS 60 cc/hr due to unknown potassium level and encourage more oral fluid intake. #Chronic HTN - Normotensive - Continue amlodipine 5 mg PO BID #Dyslipidemia - Pravastatin 20 mg PO daily #Seizure disorder - Levetiracetam 250 mg PO BID - Last seizure was years ago per hx from son #Overactive bladder - Oxybutynin 10 mg PO daily #Mood disorder - Hydroxyzine 10 mg PO - Sertraline Hcl 50 mg PO daily #Iron deficiency anemia - Continue home Ferrous Gluconate 324 mg PO daily DVT PROPHYLAXIS: Lovenox 40 mg daily DISPOSITION: Continue antibiotics for pneumonia. If pt continues to refuse blood work, we will respect her wishes and discharge her to home tomorrow. VS,Fishbone, I+O VS, Fishbone, I+O Vital Signs Date Time Temp Pulse Resp B/P (MAP) Pulse Ox O2 Delivery O2 Flow Rate FiO2 01/24/20 09:02 80 132/76 01/24/20 06:00 97.7 20 92 Nasal Cannula 2.0 I&O- Last 24 Hours up to 6 AM 01/24/20 06:00 Intake Total 2200 ml Output Total 1250 ml Balance 950 ml GME ATTESTATION GME ATTESTATION My faculty preceptor for this patient encounter was physically present during the encounter and was fully available. All aspects of the patient interview, examination, medical decision making process, and medical care plan development were reviewed and approved by the faculty preceptor. The faculty preceptor is aware and concurs with the plan as stated in the body of this note and will attest to such by his/her cosignature. FELIPE GAVIN DO Jan 24, 2020 11:07
[2020-01-24] MEDS: LevoFLOXacin IV 250 MG in IV 1 EA IV SCH (13:33)
[2020-01-24 14:00] VITALS: BP 139/63
[2020-01-24] MEDS: RAMELTEON 8 MG TAB (ROZEREM) PO SCH (20:25)
[2020-01-24 20:30] VITALS: BP 118/55
[2020-01-25 06:00] VITALS: BP 138/63
[2020-01-25] MEDS: ADVAIR HFA 115/21MCG INHALER INH SCH (08:00)
[2020-01-25] MEDS: BUDESONIDE 0.25 MG/2 ML INHALATION SUSPENSION INH SCH (08:00)
[2020-01-25] MEDS ORDERED: LEVO250T12 PO (09:19)
[2020-01-25] MEDS: ASPIRIN 325 MG TAB PO SCH (10:09)
[2020-01-25] MEDS: PRAVASTATIN 20 MG TAB PO SCH (10:09)
[2020-01-25] MEDS: levETIRAcetam 250MG TABLET (KEPPRA) PO SCH (10:10)
[2020-01-25] MEDS: oxyBUTYnin *DITROPAN XL* 5 MG TABCR PO SCH (10:10)
[2020-01-25] MEDS: ENOXAPARIN 40MG/0.4ML SYRINGE (J1650 PER 10MG) SC SCH (10:10)
[2020-01-25] MEDS: OMEPRAZOLE 20 MG CAP PO SCH (10:10)
[2020-01-25] MEDS: SERTRALINE HCL 50 MG TAB PO SCH (10:10)
[2020-01-25 10:13] VITALS: BP 127/62
[2020-01-25] MEDS: FERROUS GLUCONATE 324 MG TAB PO SCH (10:13)
[2020-01-25] MEDS: amLODIPine 5 MG TAB PO SCH (10:13)
[2020-01-25] MEDS: CLOPIDOGREL 75 MG TAB PO SCH (10:13)
--- NOTE | 2020-01-25 11:29 | DS.PDOC ---
Discharge Summary General Date of Admission Jan 20, 2020 at 23:33 Date of Discharge Jan 25, 2020 Attending Physician: MANE BRAGG MD Discharge Summary PROCEDURES PERFORMED DURING STAY: NONE ADMITTING DIAGNOSIS: Hypokalemia and hypomagnesemia Leukocytosis with neutrophil predominance Asthma Dementia Chronic HTN Dyslipidemia Seizure disorder Overactive bladder Mood disorder DISCHARGE DIAGNOSIS: Pneumonia Asthma Dementia Chronic HTN Dyslipidemia Seizure disorder Overactive bladder Mood disorder COMPLICATIONS/CHIEF COMPLAINT: Poor oral intake HISTORY OF PRESENT ILLNESS: Ms. Kwok is an 89 year old female with a PMH of dementia, asthma, chronic HTN, dyslipidemia, depression, seizure disorder, debility, overactive bladder and GERD who presents with poor oral intake. History was obtained from son due to patient having dementia. Pts son brought pt to the hospital after noticing she wasnt eating for 3 days and appeared dehydrated. Pt admitted to some abdominal pain, nausea and decreased appetite. She denies dizziness, chills and fevers. She was not oriented to time and place. Pt lives in an assisted living apartment in [place] receiving 24 hr nursing care and lost her recently. HOSPITAL COURSE: Ms. Kwok arrived to the hospital on 01/19 in which she was found to have hypokalemia, hypomagnesemia and leukocytosis w/ neutrophil predominance. CXR done in the ED showed increased markings demonstrating right mid and lower lung zone possible interstitial pneumonitis. Head CT w/o contrast showed no acute intracranial findings. Pt was then admitted for management of electrolyte imbalance and further assessment of abdominal pain. On admission, pt had hypokalemia with a potassium level of 2.7 and was subsequently given 4x 10 mEq IV Potassium over the next day as well as IVF 40mEq KCl in 1L NS at 60cc/hr. Hypokalemia resolved with most current level of 3.6 on 01/21. Pt refused blood draws since that time. Hypomagnesemia resolved from 1.5 to 2 after receiving 2 bags of 1 gm IV magnesium/sulfate dextrose. Pt was also complaining daily of some abdominal pain and had a leukocytosis. Initial blood culture grew S. epidermidis and repeat culture showed no growth after 48 hrs. UA culture was negative. There was no other obvious sign of infection. CT abdomen was ordered on 01/22 which showed right lower lobe pneumonia and small right pleural effusion with possible developing right middle lobe pneumonia. At this time, antibiotic therapy was started with initial 500 mg IV Levofloxacin and daily 250mg IV Levoflaxacin. Pt will be discharged home on a 4 day oral course of Levofloxacin. Pt had poor oral intake throughout hospital stay despite encouragement to eat. PT has been working with her and determined she needs 1-2 people for assistance. Pt lives in an assisted living apartment with 24/7 nursing care. Pt has been refusing lab work since 01/21 and was made aware of risks. At this time, we wish to respect her wishes and discharge her home. DISCHARGE MEDICATIONS: Please see below. ALLERGIES: Please see below. PHYSICAL EXAMINATION ON DISCHARGE: VITAL SIGNS: Please see below. GENERAL: Pt is lying in bed comfortably on her side trying to sleep. She is not in respiratory distress. HEENT: PERRL. EOM intact. Dry, oral mucus membranes. NECK: Supple. No lymphadenopathy. CARDIOVASCULAR EXAMINATION: S1S2 present. RRR. No murmurs, rubs or gallops. RESPIRATORY EXAMINATION: Clear to auscultation in all lung garibay with poor inspiratory effort. No adventitious breath sounds appreciated. ABDOMINAL EXAMINATION: Soft, non-tender abdomen. Bowel sounds normoactive in all 4 quadrants. EXTREMITIES: No edema noted. Pulses 3+ SKIN: No rashes, lesions or wounds. NEUROLOGICAL EXAMINATION: No obvious focal neurologic deficits. Pt has dementia PSYCHIATRIC EXAMINATION: Pt has normal mood and affect. LABORATORY DATA: Please see below. IMAGING: CXR (01/20/2020) - Increased markings demonstrated in the right mid and lower lung zone may indicate a interstitial pneumonitis. COPD. Head CT w/o contrast (01/20/2020) - There is moderate to severe age-related parenchymal volume loss. White matter changes are demonstrated in the subcortical, centrum semiovale and periventricular white matter consistent with age related small vessel white matter ischemic changes. The degree of ventricular dilatation is normal for age and/or degree of atrophy present. Diffuse cerebellar atrophy. Bilateral maxillary, splenoid and ethmoid sinusitis. No acute intracranial findings. CT Abdomen (01/23/2020) - Right lower lobe pneumonia and small right pleural effusion. Possible developing right middle lobe pneumonia. Likely left base subsegmental atelectatic changes. Large right renal cyst. Bilateral renal calcifications as described above. Large hiatal hernia. Other findings as described above PROGNOSIS: Fair ACTIVITY: As tolerated DIET: Regular DISPOSITION: Discharge home with 24/7 nursing care. DISCHARGE INSTRUCTIONS: You have been diagnosed with pneumonia and have been treated with IV antibiotics. Please continue oral levofloxacin for 4 days. Please follow-up with PCP within 5 days. We have discontinued your plavix. This medication can increase your risk of bleeding. Given your medical history, it is unclear why you are continued on this. Please discuss this with your PCP at your follow-up visit. If your symptoms persist, please return to the ED for evaluation. Thank you for allowing us to participate in your care. DISCHARGE CONDITION: Stable TIME SPENT ON DISCHARGE: Greater than 35 minutes. Vital Signs/I&Os Vital Signs Date Time Temp Pulse Resp B/P (MAP) Pulse Ox O2 Delivery O2 Flow Rate FiO2 01/25/20 10:13 77 127/62 01/25/20 06:00 97.9 18 93 Nasal Cannula 2.0 I&O- Last 24 Hours up to 6 AM 01/25/20 06:00 Intake Total 495 ml Output Total 1700 ml Balance -1205 ml Microbiology Microbiology 01/22/20 Blood Culture - Preliminary, Resulted No Growth after 48 hours. All Specime... 01/20/20 Urine Culture - Final, Complete 01/20/20 Blood Culture - Final, Complete Staphylococcus Epidermidis Discharge Medications Scheduled Amlodipine Besylate (Amlodipine Besylate) 5 Mg Tablet, 5 MG PO BID, (Reported) Aspirin (Aspirin) 325 Mg Tablet, 325 MG PO QAM, (Reported) Budesonide (Budesonide) 1 Mg/2 Ml Ampul.neb, 2 ML NEB BID, (Reported) Cyanocobalamin (Vitamin B-12) (Vitamin B-12) 1,000 Mcg Capsule, 1,000 MCG PO DAILY, (Reported) Ferrous Gluconate (Ferrous Gluconate) 324 Mg Tablet, 324 MG PO DAILY, (Reported) Levetiracetam (Levetiracetam) 250 Mg Tablet, 250 MG PO BID, (Reported) Levofloxacin (Levofloxacin) 250 Mg Tablet, 250 MG PO DAILY Omeprazole (Omeprazole) 20 Mg Cap, 20 MG PO DAILY, (Reported) Oxybutynin Chloride (Oxybutynin Chloride ER) 10 Mg Tab, 10 MG PO DAILY, (Reported) Pravastatin Sodium (Pravastatin Sodium) 20 Mg Tablet, 20 MG PO DAILY, (Reported) Salmeterol/Fluticasone (Advair 250-50 Diskus) 1 Each Blst.w.dev, 1 PUFF INH BID, (Reported) Sertraline Hcl (Zoloft) 50 Mg Tablet, 1 TAB PO DAILY, (Reported) Scheduled PRN Albuterol Sulfate (Ventolin Hfa) 18 Gm Hfa.aer.ad, 2 PUFFS INH Q4H PRN for SHORTNESS OF BREATH, (Reported) Hydroxyzine HCl (Hydroxyzine HCl) 10 Mg Tablet, 10 MG PO TID PRN for ANXIETY, (Reported) Naproxen Sodium (Naproxen Sodium) 220 Mg Capsule, 220 MG PO DAILY PRN for PAIN, (Reported) Allergies Coded Allergies: Sulfa (Sulfonamide Antibiotics) (Verified Allergy, Severe, HIVES, 01/20/20) Penicillins (Verified Allergy, Intermediate, 05/22/18) GME ATTESTATION GME ATTESTATION My faculty preceptor for this patient encounter was physically present during the encounter and was fully available. All aspects of the patient interview, examination, medical decision making process, and medical care plan development were reviewed and approved by the faculty preceptor. The faculty preceptor is aware and concurs with the plan as stated in the body of this note and will attest to such by his/her cosignature. FELIPE GAVIN DO Jan 25, 2020 11:29
[2020-01-25] MEDS: LevoFLOXacin IV 250 MG in IV 1 EA IV SCH (13:58)
[2020-01-25 14:00] VITALS: BP 111/49
== END 2020-01-25 16:30 | disposition home or self-care (01) | DRG 640 ==
LOC: M ED 17:17 → M ED INP 23:33 → ENRESERV 01-21 05:10 → M MSPAV 01-21 06:30
PROVIDERS: ADMIT Internal Medicine; ATTEND Internal Medicine
DX: E86.0 Dehydration (principal); J18.9 Pneumonia, unspecified organism; F03.90 Unspecified dementia, unspecified severity, without behavioral disturbance, psychotic disturbance, mood disturbance, and anxiety; J45.909 Unspecified asthma, uncomplicated; I10 Essential (primary) hypertension; E78.5 Hyperlipidemia, unspecified; F32.9 Major depressive disorder, single episode, unspecified; R53.81 Other malaise; N28.1 Cyst of kidney, acquired; N32.81 Overactive bladder; G40.909 Epilepsy, unspecified, not intractable, without status epilepticus; K21.9 Gastro-esophageal reflux disease without esophagitis; K44.9 Diaphragmatic hernia without obstruction or gangrene; E87.6 Hypokalemia; E83.42 Hypomagnesemia; Z79.82 Long term (current) use of aspirin; Z79.899 Other long term (current) drug therapy; Z88.0 Allergy status to penicillin; Z88.2 Allergy status to sulfonamides; Z85.828 Personal history of other malignant neoplasm of skin; Z20.828 Contact with and (suspected) exposure to other viral communicable diseases; Z63.4 Disappearance and death of family member

== ENCOUNTER → 2020-02-12 | Outpatient (CLI) | payer MEDICARE ==
[~2020-02-12] MED LIST changes: +B-12100010 PO; +BAYE325T12 PO; +BUDE2SUS3 NEB; +FERR325T16 PO; +HYDR-643 PO; +LEVA1.2519 PO; +LEVE250T5 PO; +LEVO250T12 PO; +MED REC COMMENT; +NAPR220C23 PO; +SERT50TA29 PO; +ZOLO50TA PO
--- NOTE | 2020-02-12 15:57 | REP ---
INDICATION: STENOSIS COMPARISON: None. TECHNIQUE: Bajwa scale and color Doppler evaluation using linear high frequency transducer Findings: FINDINGS: Two-dimensional bajwa scale and color images demonstrate moderate mixed atheromatous plaquing bilaterally with laminar flow and no appreciable narrowing. Color Doppler interrogation demonstrates normal arterial wave patterns and velocities with mild spectral broadening. Normal flow direction is appreciated in the bilateral vertebral arteries. ICA peak systolic velocity: Right 75.1 cm/s; Left 100.8 cm/s ICA diastolic velocity: Right 14.5 cm/s; Left 22.8 cm/s ECA peak systolic velocity: Right 80.9 cm/s; Left 70.4 cm/s CCA peak systolic velocity: Right 78.5 cm/s; Left 91.4 cm/s ICA/CCA ratio: Right 0.93 cm/s; Left 1.10 cm/s IMPRESSION: No hemodynamically significant areas of narrowing or stenosis appreciated. Based on set standards narrowing falls within the less than 50% range. <Electronically signed by Aguilar Vick > 02/12/20 155
== END ==
LOC: M RAD 14:51
PROVIDERS: ATTEND Surgery Vascular Surgery
DX: I65.23 Occlusion and stenosis of bilateral carotid arteries (principal)